=== PATIENT | male | born 1960 | race Caucasian/White ===

== ENCOUNTER → 2019-12-19 10:49 | Outpatient (BNVA) | payer SELFPAY | PROVIDERS: PCP Nurse Practitioner Family; Visit Provider Nurse Practitioner Family | DX: R06.02 Shortness of breath (principal); R06.89 Other abnormalities of breathing; J44.9 Chronic obstructive pulmonary disease, unspecified | CPT/HCPCS: 71046 ==

== ENCOUNTER → 2020-01-15 10:12 | Outpatient (BNVA) | payer SELFPAY | PROVIDERS: PCP Nurse Practitioner Family; Visit Provider Nurse Practitioner Family | DX: E66.9 Obesity, unspecified (principal); R25.2 Cramp and spasm | CPT/HCPCS: 80053; 80061; 83036; 84439; 84443 ==

== ENCOUNTER → 2020-01-30 13:42 | Outpatient (BNVA) | payer SELFPAY | PROVIDERS: PCP Nurse Practitioner Family; Visit Provider Nurse Practitioner Family | DX: E11.9 Type 2 diabetes mellitus without complications (principal); Z91.09 Other allergy status, other than to drugs and biological substances | CPT/HCPCS: 83036 ==

== ENCOUNTER 2020-02-09 13:11 | Outpatient (CLI) | payer SELFPAY ==
--- NOTE | 2020-02-09 13:30 | CT_ITS ---
WS: [id number] CT CHEST WITHOUT INTRAVENOUS CONTRAST HISTORY: abnormal x ray TECHNIQUE: Contiguous 5 mm axial imaging performed on the thorax. Coronal and sagittal reformats are submitted. All CT scans at [facility] use at least one of these dose optimization techniq ues: automated exposure control; mA and/or kV adjustment per patient size (includes targeted exams wh ere dose is matched to clinical indication); or iterative reconstruction. CONTRAST: Omnipaque 300; 95 mL IV. DLP: 132 726 mGy-cm. COMPARISON: Chest radiograph 12/19/2019 Lungs and central airway: Solid lobulated mass centered in the posterior superior RIGHT upper lobe me asures 3.1 cm transversely by 3.2 cm AP. Mass extends over length of 3.2 cm. Margins are very slightl y lobulated. There is mild tethering and tagging to the pleural surface. No additional mass or nodule is identified. Pleura: Normal. No pleural effusion. Heart and pericardium: Normal size heart. No pericardial effusion. Moderate atherosclerosis in the na tive coronary arteries. Mediastinum and chin: Small, subcentimeter mediastinal and hilar lymph nodes. Lymph node burden at th e RIGHT hilum is difficult to evaluate without IV contrast. No subcarinal lymph nodes. Vessels: Very mild atherosclerosis thoracic aorta. Pulmonary artery size is enlarged measuring 3.7 cm transversely. Chest wall and lower neck: No soft tissue masses. Upper abdomen: As visualized no abnormality. Hepatic steatosis. The entire liver was not included. Osseous structures: No osteoblastic or osteolytic bone disease. CT/CT chest wo con [id number] IMPRESSION: 1. Solid, lobulated RIGHT upper lobe mass with a maximum diameter of 3.2 cm. S uspicious for pulmonary neoplasm until proven otherwise. This mass would most l ikely be accessible for CT-guided liver biopsy or navigational bronchoscopy. 2. No adenopathy identified. Lack of IV contrast does limit evaluation for sma ller abnormal lymph nodes. 3. Mild atherosclerosis aorta and moderate chilkat coronary artery atherosclero sis. 4. Pulmonary hypertension.
== END 2020-02-09 13:12 | disposition home or self-care (01) ==
LOC: RADWPI 13:13
PROVIDERS: PCP Nurse Practitioner Family; Visit Provider Nurse Practitioner Family
DX: R93.89 Abnormal findings on diagnostic imaging of other specified body structures (principal); R91.8 Other nonspecific abnormal finding of lung field; I70.0 Atherosclerosis of aorta; I25.10 Atherosclerotic heart disease of native coronary artery without angina pectoris; I27.20 Pulmonary hypertension, unspecified
CPT/HCPCS: 71250

== ENCOUNTER → 2020-03-18 09:08 | Outpatient (BNVA) | payer OTHER, SELFPAY | PROVIDERS: PCP Nurse Practitioner Family; Visit Provider Nurse Practitioner Family | DX: Z20.828 Contact with and (suspected) exposure to other viral communicable diseases (principal) | CPT/HCPCS: 87635 ==

== ENCOUNTER 2020-03-20 13:01 | Outpatient (CLI) | payer SELFPAY ==
--- NOTE | 2020-03-20 09:55 | PFTS_ITS ---
Date of Study:03/20/20 Date of Dictation: 03/21/2020 MECHANICS: Forced vital capacity (FVC) is reduced Forced expiratory volume in one second (FEV1) is severely reduced FEV1/FVC is reduced. No significant response to bronchodilators FLOW VOLUME LOOP: Excessive scooping of expiratory limb suggestive of obstructive ventilatory defect . LUNG VOLUMES: Total lung capacity (TLC) is normal. Residual volume (RV) is increased suggestive of mild air trapping DIFFUSING CAPACITY FOR CARBON MONOXIDE: Mildly reduced . INTERPRETATION: The pulmonary function tests are consistent with obstructive ventilatory disease and mildly reduced gas transfer. Please correlate clinically. MTDD
--- NOTE | 2020-03-20 13:26 | PFTS_ITS ---
Date of Study:03/20/20 Date of Dictation: MECHANICS: Forced vital capacity (FVC) is . Forced expiratory volume in one second (FEV1) is . FEV1/FVC is . FLOW VOLUME LOOP: . LUNG VOLUMES: Total lung capacity (TLC) is . Residual volume (RV) is . DIFFUSING CAPACITY FOR CARBON MONOXIDE: . INTERPRETATION: The pulmonary function tests are . mechanics and lung volumes. Gas exchange (DLCO) is . MTDD
== END 2020-03-20 13:02 | disposition home or self-care (01) ==
LOC: RT 13:04
PROVIDERS: Visit Provider Thoracic Surgery (Cardiothoracic Vascular Surgery)
DX: R91.8 Other nonspecific abnormal finding of lung field (principal)
CPT/HCPCS: 94060; 94726; 94729; J7611

== ENCOUNTER 2020-04-15 08:15 | Outpatient (CLI) | payer SELFPAY ==
[2020-04-15 08:42] VITALS: BMI 44.1
--- NOTE | 2020-04-15 08:42 | ECG_ITS ---
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 Interpretive Statements NAME OF STUDY: LEXISCAN SESTAMIBI STRESS TEST INDICATION: Chest Pain PROCEDURE: At the baseline, the blood pressure was 132/66 mmHg with a heart rate of 79 bpm. The electrocardiogram showed normal sinus rhythm, normal axis with normal ST and T's. The Lexiscan was infused over a period of 20 seconds. A total of 0.4 milligrams of Lexiscan was infused. The stress phase was continued for a total of 5 minutes. Heart rate at the end of the stress phase was 88 bpm with a blood pressure 124/74 mmHg. The EKG at the peak infusion revealed sinus rhythm with no significant ST-T wave changes. Sestamibi was injected 20 seconds after the Lexiscan infusion. Blood pressure at the end of the recovery phase was 131/84 mmHg with a heart rate of 88 beats per minute. CONCLUSION: 1. Normal EKG response to LexiScan infusion. 2. No LexiScan induced chest pain or cardiac arrhythmia. 3. Normal blood pressure and heart rate response. 4. Sestamibi/sestamibi perfusion scan pending; see separate report. Electronically Signed On 04-16-2020 17:11:00 INFRASTRUCTURE DEVELOPER by Raegan Zhao M.D. [id number]
--- NOTE | 2020-04-15 08:42 | NMCV_ITS ---
NM lucita perf SPECT r/s* [id number] Hernandez, Heri Age: 60 Gender: M : 1960 Exam Date: 04/15/2020 08:42 Ordering Phys: Raegan Zhao MD ([email or web address]) Technologist: JEANIE Villa Exam Location: [facility] Indications: SHORTNESS OF BREATH STRESS TEST [facility] IMAGE PROTOCOL Rest/Stress 1 Lexiscan Day Radiopharmaceutical Dose (mCi) Administration Site Administered by Rest: Tc-99m 10.5 IV JEANIE Villa Sestamibi Stress:Tc-99m 32.4 IV JEANIE Villa Sestamibi Rest: 15-Apr-2020 60 Discovery 630 Stress: 15-Apr-2020 30 Discovery 630 0.4mg Lexiscan. Images obtained in supine and prone position. SPECT RESULTS Technical Quality: Good Raw Data Analysis: Normal Image Corrections: No attenuation or motion correction applied Summed Stress Score: 8 Summed Rest Score: 1 Summed Difference Score: 7 PERFUSION FINDINGS Small sized reversible perfusion abnormality of mid to apical inferior, apical septal, apical lateral and apical ugarte on stress images. FUNCTIONAL RESULTS (calculated via Gated SPECT) Stress Image LV EF (%): 58 Stress EDV (mL):178 TID: 0.92 Stress ESV (mL):75 FUNCTIONAL FINDINGS: The left ventricle is normal in size. Transient Ischemia Dilatation of 0.92. There is normal left ventricular systolic function. The left ventricular ejection fraction is normal with a value of 58%. There is possible mild hypokinesis of mid to apical inferior ugarte. IMPRESSIONS 1. Small sized reversible perfusion abnormality of mid to apical inferior, apical septal, apical lateral and apical ugarte. This may be suggestive of small area of ischemia in right coronary artery territory. 2. The left ventricular ejection fraction is normal with a value of 58%. 3. There is possible mild hypokinesis of mid to apical inferior ugarte. 4. No prior similar studies to compare. Raegan Zhao MD (Electronically Signed) Final Date: 16 April 2020 21:04 S
[2020-04-15 10:21] VITALS: BP 120/78; PULSE 91
[2020-04-15] MEDS: regadenoson 0.4 Mg/5 ml Syringe IVP (10:21)
== END 2020-04-15 08:16 | disposition home or self-care (01) ==
LOC: CDL 08:18
PROVIDERS: Visit Provider Internal Medicine Cardiovascular Disease
DX: Z01.818 Encounter for other preprocedural examination (principal); R06.02 Shortness of breath; R07.9 Chest pain, unspecified
CPT/HCPCS: 78452; 93017; A9500; J2785

== ENCOUNTER → 2020-05-15 08:01 | Day surgery (SDC) | payer SELFPAY | PROVIDERS: Visit Provider Thoracic Surgery (Cardiothoracic Vascular Surgery) | DX: Z01.818 Encounter for other preprocedural examination (principal) | CPT/HCPCS: 01996; 87635 ==

== ENCOUNTER 2020-05-20 13:08 | Inpatient (IN) | payer SELFPAY ==
[2020-05-15 08:45] VITALS: BMI 43.2
[2020-05-15 09:26] LABS: Basophils # 0.1 10^3/uL (0.0-0.1); Basophils % 0.6 %; Eosinophils # 0.3 10^3/uL (0.0-0.8); Eosinophils % 2.5 %; Hematocrit 50.3 % (42.0-52.0); Hemoglobin 16.9 g/dL (11.7-16.6); Lymphocytes # 2.2 10^3/uL (0.8-4.8); Lymphocytes % 20.2 %; Mean Corpuscular HGB Conc 33.6 g/dL (30.0-36.0); Mean Corpuscular Hemoglobin 29.9 pg (28.0-34.0); Mean Platelet Volume 9.4 fL (7.4-10.4); Monocytes # 0.6 10^3/uL (0.2-0.9); Monocytes % 5.9 %; Neutrophils # 7.57 10^3/uL (1.8-7.7); Neutrophils % 70.1 %; Nucleated Red Blood Cells % 0 %; Platelet Count 236 10^3/cmm (130-400); Red Blood Count 5.65 10^6/uL (4.1-5.3); Red Cell Distribution Width 13.2 % (12.1-15.1); White Blood Count 10.8 10^3/uL (4.0-10.0)
[2020-05-15 09:28] LABS: Add Urine Microscopic? NO
[2020-05-15 09:41] LABS: Bilirubin Urine Neg (Negative); Blood Urine Neg (Negative); Glucose Urine UA Norm (Normal); Ketones Urine Negative (Negative); Leukocyte Esterase Urine Negative (Negative); Nitrate Urine Negative (Negative); Protein Urine Neg (Negative); Specific Gravity, Urine 1.025 (1.005-1.030); Urine Appearance Clear (CLEAR); Urine Color Yellow (Yellow); Urobilinogen Urine Norm (Negative); pH Urine 5 (5-7)
--- NOTE | 2020-05-15 10:01 | ANES.PREANE2 ---
Pre-Anesthetic Assessment Pre-Anesthetic Assessment: Height/Weight: Height 1.8 m Weight 140.614 kg Proposed Procedure: Operation Date: 05/20/20 07:00 Proposed Procedures p Lobectomy 11795 R91.8(Right) - Joselito Pruitt MD s Thoracotomy 20772 R91.8(Right) - Joselito Pruitt MD Was Beta Alex taken within 24 hours: Yes Social: Social History: Tobacco and No alcohol Exam: Pre-Anes Outpt Exam: alert, oriented x 3 and regular rate & rhythm Additional Exam Findings (including area of procedure): Decreased BS on right, rhonchi Airway: Submandibular: WNL Cervical ROM: Other (limited nech ext/flexion) MP: 2 Dentition: Full Pulmonary: Pulmonary: COPD and Sleep apnea CV/HEM: CV/HEM: HTN Comments: EKG--multifocal PAC : : None reported Hepatic: Hepatic: None reported GI: GI: None reported Metabolic: Metabolic: DM and Morbid obesity Musc/skel: Musc/skel: Lower Back Pain Comments: Chronic back pain and surgeries Neuropsych: Neuropsych: None reported Anesthetic Plan: ASA status: 4 Anesthesia: General Other: DLETT with thoracic epidural Risk of > 500 ml blood loss (7ml/kg in children): Yes, adequate IV access and fluids planned PFSH Anesthesia PFSH: Medical History (Updated 04/07/20 @ 18:03 by Raegan Zhao MD) COPD (chronic obstructive pulmonary disease) New onset type 2 diabetes mellitus WAN (obstructive sleep apnea) Social History Smoking and tobacco status: current every day smoker cigarettes Packs smoked per day: 1.5 [ Other cigarette details: 1.5ppd x 45 years ] Quit status (tobacco): not considering quitting Second hand smoke exposure: No Smoking risk assessment/counseling performed?: Yes Alcohol intake: current Alcohol intake frequency: holidays/special occasions only Lives independently: Yes Household members: spouse Housing: House Marital status: service: No Current occupational status: employed History of recent travel: Yes Out of state: Yes Current gender identity: Male Data Anesthesia CBC & Chem 7: 05/15/20 09:15 05/15/20 09:15 Other Labs: Laboratory Results - last 48 hr 05/15/20 05/15/20 08:40 09:15 WBC 10.8 H RBC 5.65 H Hgb 16.9 H Hct 50.3 MCV 89.0 MCH 29.9 MCHC 33.6 RDW 13.2 Plt Count 236 MPV 9.4 Neut % (Auto) 70.1 Lymph % (Auto) 20.2 Mckenzie % (Auto) 5.9 Eos % (Auto) 2.5 Baso % (Auto) 0.6 Neut # (Auto) 7.57 Lymph # (Auto) 2.2 Mckenzie # (Auto) 0.6 Eos # (Auto) 0.3 Baso # (Auto) 0.1 Nucleated RBC % (auto) 0 Nucleated RBCs # 0.0 Urine Color Yellow Urine Appearance Clear Urine pH 5 Ur Specific [place] 1.025 Urine Protein Neg Urine Glucose (UA) Norm Urine Ketones Negative Urine Blood Neg Urine Nitrate Negative Urine Bilirubin Neg Urine Urobilinogen Norm Ur Leukocyte Esterase Negative Cardiac Studies: No Data to Display
[2020-05-15 10:28] LABS: INR 0.96 (0.8-1.2)
[2020-05-15 10:43] LABS: Alanine Aminotransferase 15 U/L (0-41); Albumin Level 3.4 g/dL (3.5-5.2); Alkaline Phosphatase 87 IU/L (40-130); Anion Gap 14.4 (5-19); Aspartate Amino Transferase 12 U/L (0-40); Blood Urea Nitrogen 9 mg/dL (6-20); Calcium 8.5 mg/dL (8.5-10.5); Carbon Dioxide 30 mmol/L (22-29); Chloride 100 mmol/L (98-107); Globulin 3.4 g/dL (1.3-4.6); Glomerular Filtration Rate 170.8 mL/min (90-130); Glucose 154 mg/dL (65-115); Osmolality Calculated 292 mOsm/kg (285-295); Potassium 4.4 mmol/L (3.5-5.1); Sodium 140 mmol/L (136-145); Total Bilirubin 0.3 mg/dL (0.15-1.2); Total Protein 6.8 g/dL (6.6-8.7)
[2020-05-20] VITALS (50 sets, daily range): BP systolic 112–156; BP diastolic 74–99; PULSE 84–107; RESP 15–29; TEMP 36.2–36.8; O2SAT 89–96
--- NOTE | 2020-05-20 05:40 | XR_ITS ---
WS: [id number] XR chest 1V portable [id number] REASON FOR EXAM: Preop for planned right upper lobectomy FINDINGS: Dense lobulated mass overlying the right mid lung field which appears larger and more dense than on p revious chest x-ray of 12/19/2019. XR/XR chest 1V portable [id number] IMPRESSION: Enlarging right lung mass.
[2020-05-20 06:12] LABS: Glucose Point of Care 187 mg/dL (70-110)
--- NOTE | 2020-05-20 06:14 | P.ANESUD_ITS ---
Pre-Anesthetic Update Pre-Anesthetic Assessment: Date of Surgery/Procedure: 05/20/20 Preop Mary gnosis: Right upper lobe mass Proposed Procedure: Operation Date: 05/20/20 07:00 Proposed Procedures p Lobectomy 53173 R91.8(Right) - Joselito Pruitt MD s Thoracotomy 94207 R91.8(Right) - Joselito Pruitt MD Any changes to Pre-Anesthetic Assessment?: No Last Intake: Intake Last Liquid Date 05/20/20 Last Liquid Time 00:00 Last Solid Date 05/20/20 Last Solid Time 00:00 Labs Last 48hrs: Laboratory Results - last 48 hr 05/18/20 05/20/20 13:28 06:10 POC Glucose 187 Blood Type O Positive Rho(D) Type Positive Antibody Screen Negative Crossmatch See Detail Vitals: Temperature 97.1 F L 05/20/20 05:43 Temperature Source Temporal Artery S can 05/20/20 05:43 Pulse Rate 101 H 05/20/20 05:43 Pulse Rhythm 05/20/20 05:43 Pulse Strength 3+ Normal 05/20/20 05:43 Respiratory Rate 20 H 05/20/20 05:43 Blood Pressure 156/99 05/20/20 05:43 Blood Pressure Josefa n 118 05/20/20 05:43 Pulse Oximetry 91 05/20/20 05:43 Oxygen Delivery Me thod 05/20/20 05:43 Exam: Pre-Anes Outpt Exam: alert, oriented x 3, clear to auscultation bilaterally and regular rate & rhythm Cardiac Studies: No Data to Display
[2020-05-20] MEDS: sodium chloride 0.9% 1,000 ML 30 ML IV (06:16)
--- NOTE | 2020-05-20 06:17 | P.HP_ITS ---
Providers/Chief Complaint Chief Complaint: right lobectomy History of Present Illness Heri Hernandez is a 60 year old male whom I saw originally in consultation back on March 07 of this year with presentation of a 3.2 cm lobulated right upper lobe mass that was noted on a chest x-ray as part of an evaluation for seasonal allergies and environmental exposure. This was followed up with a CT scan of the chest which revealed a 3.1 x 3.2 cm lesion in the posterior superior region of the right upper lobe. Modest enlargement of the pulmonary artery to 3.7 cm was also noted. 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 And smoking at age 15 and has smoked on average, 1.5 packs of cigarettes daily. His weight is 320 pounds plus. PET scan has revealed increased activity in this right upper lobe lesion but no abnormal activity elsewhere. He does have a prior history for COPD and he does have a CPAP machine at home which he admits that he rarely uses. Pulmonary function studies of March 20 revealed an FEV1 of 1.8 which is 47% of predicted without improvement postbronchodilator. His FVC is 3.16 which is 64% of predicted with minimal improvement postbronchodilator. Of concern is his FEF 25/75 which is 0.86, 26% of predicted. Does give a history occasionally of midsternal chest discomfort. Therefore, I asked my colleague, Dr. Zhao from our cardiology service for an evaluation. He was evaluated by her on March 28. Chest amoeba study was ordered and performed on April 15. The study was unremarkable. As part of continued preoperative evaluation ask my colleague, Dr. Scott from our pulmonary service for evaluation preoperatively. He saw Mr. Hernandez on April 03. He does have substantial preoperative comorbidities and risk profile but was cleared for surgery with high risk and a potential 42% pulmonary complication rate. Dr. Scott explained this carefully to Mr. Hernandez and his . With this understanding, they did wish to proceed with surgery. I will be seeking expertise and advice of our pulmonary colleagues postoperatively given the high risk nature of his comorbidities in relation to this attempt to hopefully curative resect this concerning lesion with a high probability for malignancy. Risk profile, which was again Explained to him today and his , include morbid obesity, COPD, continued tobacco use, room air O2 saturation low 90%, recorded during 1 clinic visit at 84%. Review of Systems Const: Denies: fever(s), chills, change in appetite, change in weight, fatigue or night sweats Eyes: Denies: change in vision or blurry vision ENMT: Denies: odynophagia or hoarseness Card: Reports: chest pain (This is been evaluated by Dr. Zhao from cardiology service and has include) and dyspnea on exertion; Denies: palpitations, irregular heart rhythm or pre-syncope Resp: Reports: dyspnea; Denies: productive cough, pain on inspiration or hemoptysis GI: Denies: abdominal pain, nausea, vomiting, dysphagia, heartburn or change in bowel habits : Denies: difficulty urinating, dysuria, urinary frequency, urinary urgency or urinary hesitancy Musc: Denies: extremity pain or extremity swelling Skin/Breast: Denies: rash Neuro: Denies: headache(s), numbness in extremities, weakness in extremities or sensory changes Psych: Denies: anxiety, depression or change in appetite Endo: Denies: polyuria, polydipsia or cold intolerance Anthony/Lymph: Denies: easy bruising, easy bleeding, petechiae or enlarged lymph nodes Medications/Allergies Home Medications Medication Instructions Recorded Confirmed Last Taken Type cetirizine 10 mg tablet 10 mg PO DAILY #30 tab 12/19/19 05/20/20 05/19/20 Rx ketotifen fumarate 0.025 % (0.035 1 drop OPHTHALMIC (EYE) Q12H #5 ml 01/15/20 05/15/20 Unknown Rx %) eye drops blood-glucose meter #1 each 01/30/20 04/03/20 Unknown Rx albuterol sulfate 90 mcg/actuation 1 inh INHALATION QID PRN 03/07/20 05/20/20 05/18/20 History aerosol inhaler nicotine (polacrilex) 4 mg gum 4 mg BUCCAL Q2H #50 each 04/03/20 04/03/20 Rx nicotine 21 mg/24 hr daily 1 patch TRANSDERMA DAILY #28 each 04/03/20 04/03/20 Unknown Rx transdermal patch metoprolol tartrate 25 mg tablet 25 mg PO BID #60 tab 04/18/20 05/20/20 05/19/20 20:00 Rx rosuvastatin 10 mg tablet 10 mg PO DAILY #30 tab 04/18/20 05/20/20 05/19/20 Rx metformin 500 mg tablet 500 mg PO BID #60 tab 05/13/20 05/20/20 05/19/20 20:00 Rx Allergies Allergy/AdvReac Type Severity Reaction Status Date / Time carisoprodol [From Soma] Allergy ALGY-Hives Verified 05/15/20 08:39 fluticasone Allergy ALGY-Hives Verified 05/15/20 08:39 [From Advair Diskus] salmeterol Allergy ALGY-Hives Verified 05/15/20 08:39 [From Advair Diskus] PFSH Acute PFSH: Medical History COPD (chronic obstructive pulmonary disease) New onset type 2 diabetes mellitus WAN (obstructive sleep apnea) Social History Smoking and tobacco status: current every day smoker cigarettes Packs smoked per day: 1.5 [ Other cigarette details: 1.5ppd x 45 years ] Quit status (tobacco): not considering quitting Second hand smoke exposure: No Smoking risk assessment/counseling performed?: Yes Alcohol intake: current Alcohol intake frequency: holidays/special occasions only Lives independently: Yes Household members: spouse Housing: House Marital status: service: No Current occupational status: employed History of recent travel: Yes Out of state: Yes Current gender identity: Male Vitals/I&O/Wt Last Vital Signs Temp 97.1 F L 05/20/20 05:43 Pulse 101 H 05/20/20 05:43 Resp 20 H 05/20/20 05:43 BP 156/99 05/20/20 05:43 Pulse Ox 91 05/20/20 05:43 Physical Exam Const: COMMON NORMALS: patient oriented x3 and alert ORIENTATION/CONSCIOUSNESS: Yes oriented to person, Yes oriented to place and Yes oriented to time HENMT: COMMON NORMALS: normocephalic HEAD & SCALP: normocephalic Neck/C-Spine: COMMON NORMALS: full ROM, supple, no JVD and No carotid bruits GENERAL: Yes trachea midline CERVICAL SPINE: Yes cervical ROM normal Chest: COMMONS NORMALS: normal inspection of the chest and normal palpation of entire chest wall Resp: COMMON NORMALS: normal respiratory effort, No use of accessory muscles, clear to auscultation bilaterally and percussion normal EFFORT & INSPECTION: Yes able to speak in complete sentences, Yes symmetric chest movement, No tachypneic, No respiratory distress, No Actively coughing, No tracheal deviation and Yes prolonged expiratory phase AUSCULTATION: clear to auscultation bilaterally PERCUSSION: percussion normal Cardio: COMMON NORMALS: no JVD, regular rate, regular rhythm, S1 normal heart sound present, S2 normal heart sound present, No gallops present (Cardio), No murmurs present (Cardio), No rub (Cardio) and Peripheral pulses 2+ throughout JUGULAR VENOUS DISTENTION: no JVD RATE: regular rate RHYTHM: regular rhythm HEART SOUNDS: S1 normal heart sound present and S2 normal heart sound present PERIPHERAL PULSES: Peripheral pulses 2+ throughout Extremity: COMMON NORMALS: capillary refill normal; negative for no pedal edema (1+ edema at the ankles) GENERAL: No cyanosis OTHER: 1+ edema at the ankles. No clubbing or cyanosis. Neuro: COMMON NORMALS: patient oriented x3, no focal motor deficits and no sensory deficits noted SENSORIUM/ORIENTATION: Yes alert, Yes oriented to person, Yes oriented to place and Yes oriented to time GAIT: Yes Normal gait present Data : 05/15/20 09:15 05/15/20 09:15 A&P Assessment and plan (1) Mass of upper lobe of right lung: Morbidly obese 60-year-old gentleman with isolated 3.2 cm right upper lobe lung mass without evidence for metastatic disease. Lesion has increased activity on PET scan and is concerning. Substantial preoperative risk include morbid obesity, COPD, continued tobacco use, and room air saturation below 90%. He has been carefully evaluated preoperatively by my colleagues through the cardiology service and pulmonary medicine. Mr. Hernandez and his are keenly aware of the increased risk for surgical complications. They do wish to proceed for surgery. I will be seeking the expertise of our pulmonary colleagues in the postoperative period. I would expect he will have a protracted course and may have respiratory difficulties and concerns as previously documented by Dr. Scott. Details and risks of the procedure were carefully and frankly discussed. Risks reviewed include the possibility of , stroke, heart attack, major bleeding, infection, pneumonia, prolonged need for dilatory support, prolonged ICU stay, DVT or pulmonary embolism, inability to adequately resect the lesion, organ failure, failure to benefit, prolonged hospital stay, pain after the procedure, need for further procedures, inability to complete the procedure, and possible need for long-term followup. All questions were answered. Appropriate consents have been provided for review and signature. Status: Acute Attestations Medical Necessity Statement*: PET positive right upper lobe lung mass in this middle-aged gentleman with a long history tobacco use and several perioperative complicating factors. Time Spent in Patient Care: Greater than 35 minutes Coding Level of Care Code Established Pt Acute Tenant Relations Coordinator for Chg Fwd Patient Type Established History Comprehensive Exam Comprehensive Medical Decision Making High Complexity Diagnoses Mass of upper lobe of right lung R91.8 Time Spent (min) 45
[2020-05-20] MEDS: midazolam 1 mg/mL INJ 2 mL 2 MG IVP (06:30)
[2020-05-20] MEDS: fentaNYL 50 mcg/mL INJ 2mL 100 MCG IVP (06:49)
--- NOTE | 2020-05-20 08:04 | SUR.OPER ---
Family Notified Of Patient's Status Via Phone.
[2020-05-20] MEDS: ceFAZolin 1,000 mg SDV 2000 MG IRRIGATION (08:09)
--- NOTE | 2020-05-20 08:25 | ANES.PROC ---
Anesthesia Procedures Procedure/Date: 05/20/20 Epidural: Time Out Performed: Yes Consents Signed: Procedure Consent and NPO Consent Consent: requested by attending/covering physician, from patient, risks and benefits reviewed and patient agrees to proceed Thoracic Level: other (T6-7) Epidural position: sitting Epidural procedure: sterile prep of area, 1% lidocaine to numb the area, 18 g needle, negative for paresthesia passed, neg for paresthesia, test dose given, 1.5% xylocaine 1:200k epi (3), placed PCEA, no systemic response, sterile dressing applied and L.U.D. no apparent complications
--- NOTE | 2020-05-20 09:02 | SUR.OPER ---
Family Notified Of Patient's Status Via Phone.
--- NOTE | 2020-05-20 10:48 | SUR.OPER ---
Family Notified Of Patient's Status Via Phone.
[2020-05-20] MEDS: ceFAZolin 1,000 mg SDV 2000 MG IVP (11:44)
[2020-05-20] MEDS: insulin regular-human 100 units/1 mL 4 UNIT IVP (12:38)
[2020-05-20 13:08] LABS: ABG PCO2 54.9 mmHg (35-45); ABG PH Result 7.32 (7.35-7.45); Arterial Blood Gas Hematocrit 49.3 % (42-52); Base Excess ABG 0.7 mmol/L (-2.0-2.0); Blood Gas Operator Identificat AMH; Blood Gas Sample Type Arterial; Carboxyhemoglobin 3.3 %THgb (0.4-20.1); HCO3 ABG 28.2 mmol/L (22-26); HGB O2 Sat 95.6 % (95-100); Oxygen Device VENT; Oxygen Saturation ABG 99.9; Potassium Level - ABG 5.6 mmol/L (3.5-5.0); Total Hemoglobin 16.1 g/dL (14-18)
[2020-05-20 13:11] LABS: ABG PH Result 7.25 (7.35-7.45); Arterial Blood Gas Hematocrit 51.9 % (42-52); Base Excess ABG 1.3 mmol/L (-2.0-2.0); Blood Gas Operator Identificat MBB; Blood Gas Sample Type Arterial; Carboxyhemoglobin 3.6 %THgb (0.4-20.1); HCO3 ABG 31.3 mmol/L (22-26); HGB O2 Sat 91.9 % (95-100); Ionized Calcium Level - ABG 1.1 mmol/L (1.1-1.4); Methemoglobin 0.2 % (0.4-1.5); Oxygen Device VENT; Oxygen Saturation ABG 95.6; Total Hemoglobin 16.9 g/dL (14-18)
[2020-05-20 13:15] LABS: ABG PCO2 71.2 mmHg (35-45)
--- NOTE | 2020-05-20 14:07 | XR_ITS ---
WS: [id number] XR chest 1V portable [id number] REASON FOR EXAM: post op cabg FINDINGS: Surgical arnie overlying the right hemithorax. Shift of the mediastinal structures to the right. Ri ght chest tube in place overlying the mid right hemithorax. There is air in the right upper pleural space. There is vague density in the left lower lung field overlying the cardiac silhouette. XR/XR chest 1V portable [id number] IMPRESSION: Findings compatible with partial right pneumonectomy. Vague density in the left lower lung . Possibly this is related to some atelect asis in the left lower lung.
[2020-05-20] MEDS: ketorolac 30 mg/mL INJ IVP (14:17)
[2020-05-20] MEDS: morphine 4 mg/mL SDV 1 mL 2 MG IVP ×2 (14:57→20:53)
[2020-05-20] MEDS: ondansetron 2 mg/ML SDV 2 mL 4 MG IVP (15:06)
[2020-05-20] MEDS: lactated ringers 1,000 ML 125 ML IV (15:17)
[2020-05-20] MEDS: ceFAZolin 1,000 MG in sodium chloride 0.9% (plus) 50 ML 100 MG IV ×2 (15:30→23:15)
--- NOTE | 2020-05-20 15:50 | ANE.PACU2 ---
Inpatient post-anesthesia follow up: Airway intact: Yes Vital signs: Temperature 97.1 F Pulse Rate 107 Respiratory Rate 28 Blood Pressure 156/99 Pulse Oximetry 89 Oxygen Delivery Me thod BiPAP Oxygen Flow Rate Fraction of Inspir ed Oxygen 65 Hydration adequate: Yes Nausea and vomiting: No Pain level: 6 Pain level: lower back Mental status: Baseline
--- NOTE | 2020-05-20 16:34 | P.CONIM_ITS ---
Providers/Reason For Consult Consulting Physican/Specialty*: Pulmonary and critical care medicine Reason for Consult*: Postoperative management following right upper lobectomy for suspected lung malignancy. Attending Physician: Joselito Pruitt MD History of Present Illness History of Present Illness Heri Hernandez is a 60 year old male who underwent right upper lobectomy today for right upper lobe lung mass. The patient is an active smoker and has an extensive history of smoking. He also has chronic hypoxic and hypercapnic respiratory failure. He also carries a diagnosis of obstructive sleep apnea possibly with a component of obesity hypoventilation syndrome. The patient is a high risk candidate for perioperative complications. I had seen and examined the patient in the ICU post surgery. It appears, the patient had significant hip pain. His chest pain is controlled with epidural anesthesia. The surgical procedure was uncomplicated. The right-sided chest tube did not reveal any evidence of air leak. Pulmonary function test: The patient has severe airflow obstruction on his pulmonary function test from March 2020. His FEV1 FVC ratio is 56% with FEV1 of 1.79 L which is 47% of predicted and forced vital capacity of 3.22 L which is 65% of predicted. His DLCO was 77% with mildly elevated residual volume at 122%. The patient was also evaluated by the cardiac team preoperatively. His stress test from April 15 revealed small size reversible perfusion abnormality of mid to apical inferior, apical septal, apical lateral and apical ugarte. The ejection fraction was 58%. There is also possible mild hypokinesis of the apical inferior wall. Review of Systems Narrative: Other than severe hip pain, the review of system was incomplete because of the patient's pain Meds/Allergies Home Medications and Allergies Home Medications Medication Instructions Recorded Confirmed Last Taken Type cetirizine 10 mg tablet 10 mg PO DAILY #30 tab 12/19/19 05/20/20 05/19/20 Rx ketotifen fumarate 0.025 % (0.035 1 drop OPHTHALMIC (EYE) Q12H #5 ml 01/15/20 05/15/20 Unknown Rx %) eye drops blood-glucose meter #1 each 01/30/20 04/03/20 Unknown Rx albuterol sulfate 90 mcg/actuation 1 inh INHALATION QID PRN 03/07/20 05/20/20 05/18/20 History aerosol inhaler nicotine (polacrilex) 4 mg gum 4 mg BUCCAL Q2H #50 each 04/03/20 04/03/20 05/19/20 Rx nicotine 21 mg/24 hr daily 1 patch TRANSDERMA DAILY #28 each 04/03/20 04/03/20 Unknown Rx transdermal patch metoprolol tartrate 25 mg tablet 25 mg PO BID #60 tab 04/18/20 05/20/20 05/19/20 20:00 Rx rosuvastatin 10 mg tablet 10 mg PO DAILY #30 tab 04/18/20 05/20/20 05/19/20 Rx metformin 500 mg tablet 500 mg PO BID #60 tab 05/13/20 05/20/20 05/19/20 20:00 Rx Allergies Allergy/AdvReac Type Severity Reaction Status Date / Time carisoprodol [From Soma] Allergy ALGY-Hives Verified 05/15/20 08:39 Current Medications Current Medications Generic Name Dose Route Start Last Admin Trade Name Freq PRN Reason Stop Dose Admin Ropivacaine 200 mg in 100 mls @ 6 mls/hr 05/20/20 08:00 05/20/20 15:22 Naropin Premix EPIDURAL Not Given .[id number] SYLVIA Cefazolin Sodium 1,000 mg/ 50 mls @ 100 mls/hr 05/20/20 15:00 05/20/20 15:30 Sodium Chloride IV 05/21/20 07:29 100 mls/hr Q8H SYLVIA Administration Protocol Lactated Ringer's 1,000 mls @ 125 mls/hr 05/20/20 14:06 05/20/20 15:17 Lactated Ringers IV 125 mls/hr .Q8H SYLVIA Administration Ondansetron HCl 4 mg 05/20/20 08:00 05/20/20 15:06 Ondansetron 2 Mg/Ml Sdv 2 Ml IVP 4 mg Q4H PRN Administration NAUSEA AND VOMITING PFSH Acute PFSH: Medical History COPD (chronic obstructive pulmonary disease) New onset type 2 diabetes mellitus WAN (obstructive sleep apnea) Social History Smoking and tobacco status: current every day smoker cigarettes Packs smoked per day: 1.5 [ Other cigarette details: 1.5ppd x 45 years ] Quit status (tobacco): not considering quitting Second hand smoke exposure: No Smoking risk assessment/counseling performed?: Yes Alcohol intake: current Alcohol intake frequency: holidays/special occasions only Lives independently: Yes Household members: spouse Housing: House Marital status: service: No Current occupational status: employed History of recent travel: Yes Out of state: Yes Current gender identity: Male Vitals/I&O/Wt Last Vital Signs Temp 97.1 F L 05/20/20 05:43 Pulse 107 H 05/20/20 14:26 Resp 28 H 05/20/20 14:57 BP 156/99 05/20/20 05:43 Pulse Ox 89 L 05/20/20 14:57 05/20/20 05/20/20 05/20/20 06:59 14:59 22:59 Intake Total 3560 / 3560 100 / 3660 Output Total 500 / 500 Balance 3060 / 3060 100 / 3160 Physical Exam Narrative: EXAM NARRATIVE: General: Patient is awake alert and oriented. In significant distress from hip pain. Neck: Unable to assess JVD Respiratory: Inspection: Right-sided chest tube in place Palpation: Trachea is mildly deviated to the left Percussion: Diminished percussion note on the right chest Auscultation: Reduced breath sound in the right hemithorax compared to the left, occasional crackles on the right, no wheezing or rhonchi Cardiovascular: Regular rate and rhythm, S1-S2 present, no murmur,no peripheral edema. Abdomen: Soft, nontender, distended from obesity, positive bowel sound Musculoskeletal: No obvious joint deformity, severe hip pain Skin: No rash Neuro: Mental status is normal, no gross cranial or motor dysfunction Urinary Catheter Management^: Bond: Cath Placed During This Visit: yes Urinary Catheter Date of Insertion: 05/20/20 Urinary Catheter Time of Insertion: 07:30 Data Other Data: Attestation for Other Data: I personally reviewed and interpreted the following: Other data: I have reviewed the patient laboratory, microbiologic and radiologic data. A&P Assessment and plan (1) COPD (chronic obstructive pulmonary disease): The patient has advanced COPD. On pulmonary function test he has severe airflow obstruction. Interestingly, his DLCO was normal. For now, I will restart the patient on Pulmicort and [id number] DuoNeb nebulization. Early mobilization would significantly help preventing atelectasis. Optimal pain control will also help with atelectasis. Going to give the patient a dose of 60 mg of Lasix. The postoperative chest x-ray revealed some evidence of interstitial opacity. Currently the patient is on BiPAP, he looks compensated. The patient does not use any CPAP at home. He will likely benefit from a CPAP or BiPAP at nighttime Status: Acute Qualifiers: COPD type: emphysema Emphysema type: centrilobular Qualified Code(s): J43.2 - Centrilobular emphysema (2) WAN (obstructive sleep apnea): Status: Acute (3) Chronic respiratory failure with hypoxia and hypercapnia: Patient is at high risk for perioperative complications. Status: Acute Coding Level of Care Code Acute Export Traffic Department Manager for [facility] Diagnoses COPD (chronic obstructive pulmonary disease) J43.2 COPD type: emphysema Emphysema type: centrilobular WAN (obstructive sleep apnea) G47.33 Chronic respiratory failure with hypoxia and hypercapnia J96.11; J96.12
[2020-05-20 17:16] LABS: Glucose Point of Care 212 mg/dL (70-110)
[2020-05-20] MEDS: FUROsemide 10 mg/mL SDV 4mL 60 MG IVP (17:16)
[2020-05-20] MEDS: metoprolol tartrate 25 mg Tablet PO (17:16)
--- NOTE | 2020-05-20 18:59 | PM.OP ---
Operative Report Date of procedure: May 20, 2020 Pre-op Diagnosis: Right upper lobe mass Post-op diagnosis: same Procedure Done: Right upper and middle lobectomies Specimens removed/disposition: Right upper and middle lobes Surgeon: Joselito Pruitt Anesthesia: General Complications: None Condition: stable Disposition: ICU Brief History: Mr. Hernandez is a 60-year-old morbidly obese gentleman with a long history of continued tobacco use and incidental finding of a 3.2 cm lobulated right upper lobe mass identified on chest x-ray during evaluation for seasonal allergies. This has been further evaluated with CT scan and subsequent PET scan which reveals increased activity in this substantial lesion. He has advanced COPD and has been carefully evaluated by Dr. Scott. He is a high risk candidate for surgery, though given the size of the lesion and increased activity on PET scan, there are great concerns for malignancy and it was felt that attempt at surgical removal should be entertained given that there was no evidence for advanced regional or metastatic disease. This was carefully discussed with Mr. Hernandez and his . The substantial increased risk for the surgery related to his comorbidities were very frankly reviewed and all questions were answered. As discussed with him and his , I would expect a protracted postop course with the increased potential for perioperative complications or poor outcome. He and his wish to proceed. Procedure: Thoracic epidural catheter was placed prior to entering the surgical suite. Mr. Hernandez underwent general endotracheal anesthesia with double-lumen endotracheal tube placed. Appropriate invasive lines were placed. He was placed in the left lateral decubitus position over axillary roll and protective padding. His entire right chest was sterilely prepped and draped. A right thoracotomy incision was made with cautery used to control bleeding. Given his substantial size and deep chest, the serratus anterior muscle was also partially divided to assist with exposure. Latissimus muscle was divided. The fifth intercostal space was entered. Moist laparotomy pads and the Finochietto retractor were placed on with assistance utilizing a tuffier retractor as well as a armaan retractor to help control the substantial soft tissue.. The chest was carefully opened. The impressive right upper lobe mass could be easily palpated. The pleura was opened circumferentially around the hilum. There were adhesions to portions of the right lower lobe. These were not disturbed. Hilar dissection was initiated anteriorly and superiorly. The superior pulmonary vein was controlled and stapled by sequentially dividing its branches. Dissection was then continued cranially isolating branches of the pulmonary artery to the right upper lobe. These were also taken down ligated and divided. Posteriorly, the bronchus to the right upper lobe was dissected free. Fissure between middle lobe and lower lobe was divided using automated stapler. Pulmonary artery branches to the middle lobe were taken down and ligated. Bronchus to the right middle lobe was stapled and transected. Next, right upper lobe bronchus was stapled and sharply divided with scalpel. Right upper and middle lobe specimen was removed. No substantial adenopathy at this bronchial staple line. Right upper lobe bronchial stump was oversewn with 4-0 Prolene suture. The entire chest was irrigated with large amounts of antibiotic solution. [] lobe was reinflated. No substantial air leaks were identified. 28 Yoruba drain was placed over the diaphragm and out to the apex. This was connected to Pleur-evac suction. Retractor and sponges were removed. Sponge and needle count was correct. Chest wall was reapproximated with interrupted #1 Vicryl suture. The fascia was closed with running 0 Vicryl suture. The subcutaneous layer was closed with 2-0 Vicryl suture. Skin was reapproximated in a subcuticular manner with 3-0 Monocryl suture. Sterile dressing was applied. Mr. Hernandez was returned to the supine position and awakened from anesthesia. He was extubated. He was then transferred to the ICU. His was counseled. I have conferred with my colleague Dr. Brown from pulmonary medicine, whom will be assisting with postoperative management given Mr. Hernandez's substantial pulmonary dysfunction. Chest x-ray is pending.
[2020-05-20] MEDS: oxyCODONE-APAP 5-325 mg Tablet 1 TAB PO (19:38)
[2020-05-20] MEDS: budesonide 0.5 mg/2 mL Neb 0.25 MG INHALATION (20:47)
[2020-05-20] MEDS: ipratropium-albuterol 3 mL Neb INHALATION (20:47)
[2020-05-20 21:04] LABS: Glucose Point of Care 189 mg/dL (70-110)
[2020-05-21] VITALS (300 sets, daily range): BP systolic 102–168; BP diastolic 66–125; PULSE 85–112; RESP 11–32; TEMP 36.5–37.3; O2SAT 80–95
[2020-05-21] MEDS: morphine 4 mg/mL SDV 1 mL 2 MG IVP ×6 (00:56→22:56)
[2020-05-21] MEDS: ipratropium-albuterol 3 mL Neb INHALATION ×4 (03:04→21:43)
[2020-05-21 04:06] LABS: Basophils # 0.1 10^3/uL (0.0-0.1); Basophils % 0.4 %; Eosinophils % 0.1 %; Hematocrit 49.9 % (42.0-52.0); Hemoglobin 15.5 g/dL (11.7-16.6); Lymphocytes # 2.4 10^3/uL (0.8-4.8); Lymphocytes % 12.9 %; Mean Corpuscular HGB Conc 31.1 g/dL (30.0-36.0); Mean Corpuscular Hemoglobin 29.1 pg (28.0-34.0); Mean Corpuscular Volume 93.6 fL (80-94); Mean Platelet Volume 9.8 fL (7.4-10.4); Monocytes # 1.2 10^3/uL (0.2-0.9); Monocytes % 6.3 %; Neutrophils # 14.78 10^3/uL (1.8-7.7); Neutrophils % 79.9 %; Nucleated Red Blood Cells % 0 %; Platelet Count 231 10^3/cmm (130-400); Red Blood Count 5.33 10^6/uL (4.1-5.3); Red Cell Distribution Width 13.6 % (12.1-15.1); White Blood Count 18.5 10^3/uL (4.0-10.0)
[2020-05-21 04:35] LABS: Blood Urea Nitrogen 23 mg/dL (6-20); Calcium 7.5 mg/dL (8.5-10.5); Carbon Dioxide 27 mmol/L (22-29); Chloride 100 mmol/L (98-107); Glomerular Filtration Rate 68.8 mL/min (90-130); Glucose 178 mg/dL (65-115); Osmolality Calculated 294 mOsm/kg (285-295); Sodium 138 mmol/L (136-145)
[2020-05-21 04:39] LABS: Anion Gap 16.2 (5-19); Potassium 5.2 mmol/L (3.5-5.1)
[2020-05-21] MEDS: guaiFENesin 100 mg/5 mL UDC 10 mL 200 MG PO (04:40)
--- NOTE | 2020-05-21 06:00 | XR_ITS ---
WS: [id number] XR chest 1V portable [id number] REASON FOR EXAM: POD #1 status post right upper/middle lobectomies FINDINGS: Compared to the previous examination of 05/20/2020, only a small amount of aerated lung is present and is slightly decreased volume compared to the previous examination. There appears to be infiltrative change developing in the lower portion of this aerated lung. Right chest tube remains in position. Mediastinal structures are shifted to the right. Previously suspicion density in the left lower lung on the previous examination, appears to be an inf iltrative process on the current study. XR/XR chest 1V portable [id number] IMPRESSION: Post partial pneumonectomy changes in the right hemithorax with some loss of ae rated lung compared to the prior day. Infiltrative process developing in the left lower lung and possibly within the remaining right lower lung.
--- NOTE | 2020-05-21 06:52 | PC.NURSE ---
Shift Summary: Patient had some c/o pain overnight that he says is from his hip with pain in right chest/back during coughing/turning. Morphine IVP, and PO Oxycodone given in efforts to decrease reported pain levels. Cough Suppressant given once during episode of Epidural still in place. Chest tube dressing remains mostly dry with minimal drainage noted. Sinus Tach towards the later part of shift with HR 90-105. Bipap was removed for about 30 mins during overnight shift. First was placed on 10L NC and desaturated to 80%. Hiflow then placed on patient at 15L NC, with SPO2 fluctuating to 85% at best. Patient was then placed back on Bipap at 65%, then returned to a 93% baseline. MD Edmond rounded this early AM. Reports patient should be moved up to chair as a priority. Art Line is to remain placed for close hemodynamic monitoring. NS@ 50mL/hr. 1050 u/o 560 chest tube drainage during shift/ (Total 720 to date). Patient up to chair with assistance of both day and nightshift RN's.
--- NOTE | 2020-05-21 07:30 | P.PN_ITS ---
Subjective Subjective: Interval history: Stop day #1 status post right upper lobectomy. Has remained on BiPAP all night. Desaturation when placed on nasal cannula. Tube output 560 cc since return from surgery. No air leak. Marked volume loss noted on right hemithorax. There is right pleural thickening versus early fluid collection laterally. Vitals/I&O/Wt Last Vital Signs Temp 98.2 F 05/21/20 04:05 Pulse 107 H 05/21/20 06:15 Resp 24 H 05/21/20 06:15 BP 163/125 05/21/20 06:15 Pulse Ox 92 05/21/20 06:15 05/20/20 05/21/20 05/21/20 22:59 06:59 14:59 Intake Total 1214.583 / 4774.583 1200 / 5974.583 Output Total 870 / 1370 1190 / 2560 Balance 344.583 / 3404.583 10 / 3414.583 Physical Exam Chest: OTHER: Surgical dressings are dry. Chest tube is in good position. Marked decreased breath sounds right side. Left side is clear. Cardio: COMMON NORMALS: regular rate, regular rhythm and S1 normal heart sound present RATE: regular rate RHYTHM: regular rhythm HEART SOUNDS: S1 no rmal heart sound present Urinary Catheter Management^: Bond: Cath Placed During This Visit: yes Reason for Continuing Indwelling Catheter: Accurate Measurement of Urinary Output in Critically Ill Patients Urinary Catheter Date of Insertion: 05/20/20 Urinary Catheter Time of Insertion: 07:30 Data : 05/21/20 03:20 05/21/20 03:20 A&P Assessment and plan (1) Status post lobectomy of lung: Plan: Up in chair. Aggressive pulmonary toilet. May require nasotracheal aspiration. As expected, this will be a difficult postop course with uncertain outcome at this time. Hemodynamically stable. I greatly appreciate Dr. Brown's expertise in efforts. CBC, BMP, chest x-ray in a.m. Status: Acute Attestations Medical Necessity Statement*: Postop day #1 status post right upper lobectomy. Pathology pending Time Spent in Patient Care: 16 - 35 minutes Coding Level of Care Code Acute Attractions Associate for [facility] F[facility] Diagnoses Status post lobectomy of lung Z90.2
[2020-05-21] MEDS: budesonide 0.5 mg/2 mL Neb 0.25 MG INHALATION ×2 (08:12→21:43)
--- NOTE | 2020-05-21 08:21 | PC.CHAP ---
Pastoral Care Encounter/Spiritual Assessment Type of Contact [] Declined automobile upholsterer apprentice visit [] Patient/Family/Request visit [] Outpatient visit [] Follow-up visit [] Physician referral [] Code/Alert [] Routine visit [] Staff referral [] Actively dying [] Patient sleeping [] Family support [] [] Out of room [] Palliative care [] [] Receiving care in room [] Pre-surgical visit [] Trauma [] Long length of stay [] ICU visit [] Other: Relational/Emotional Strength [] Patient feels connected with others/family/visitors/staff [] Distress [] Loneliness/isolation [] Abandonment Spirituality of Patient [] Person of Nadine [] Attends Buddhism of their Nadine [] Believes in Prayer [] Reads Bible or Baptist materials [] There are Spiritual issues to be addressed Bus Company Manager Interventions [x] Prayer [] Active listening [] Non-anxious presence [] Spiritual/emotional support [] Crisis/trauma care [] Spiritual counseling [] Bereavement support [] Provided bereavement packet [] Provided Bible/devotional materials [] Provided toy/stuffed animal, coloring book to patient or family member [] Provided Communion [] Anointing/[place] [] Salvation [x] Completed spiritual assessment [] Other: Impact on Illness or Injury [] Angry [] Fearful [] Anxious [] Often cries [] Exhaustion [] Unable to work [] Unable to attend buddhism [] Unable to walk/stand [] Unable to read [] Unable to drive [] Unable to eat/drink [] Unable to sleep [] Unable to be with family [] Patient intubated [] Other: Summary Time spent with patient
[2020-05-21] MEDS: ceFAZolin 1,000 MG in sodium chloride 0.9% (plus) 50 ML 100 MG IV (08:43)
[2020-05-21] MEDS: atorvastatin 40 mg Tablet PO (09:02)
[2020-05-21] MEDS: metoprolol tartrate 25 mg Tablet PO ×2 (09:02→17:21)
[2020-05-21] MEDS: pantoprazole DR 40 mg Tablet PO (09:02)
[2020-05-21] MEDS: cetirizine 10 mg Tablet PO (09:02)
[2020-05-21] MEDS: lactated ringers 1,000 ML 50 ML IV (09:09)
--- NOTE | 2020-05-21 09:30 | PC.RESP ---
SMOKING CESSATION AND PULMONARY REHAB INFORMATION SENT TO PATIENT.
--- NOTE | 2020-05-21 09:33 | ANE.PACU2 ---
Inpatient post-anesthesia follow up: Airway intact: Yes Vital signs: Temperature 97.7 F Pulse Rate 109 Respiratory Rate 20 Blood Pressure 142/82 Pulse Oximetry 93 Oxygen Delivery Me thod BiPAP Oxygen Flow Rate 65 Fraction of Inspir ed Oxygen 65 Hydration adequate: Yes Nausea and vomiting: No Pain level: 2 Pain level: Most of pain is related to CPAP mask and H/A. Mental status: Baseline Additional Comments: Incision is comfortable, patient up in chair. POD 1
[2020-05-21 11:21] LABS: Glucose Point of Care 228 mg/dL (70-110)
[2020-05-21 11:33] LABS: Glucose Point of Care 188 mg/dL (70-110)
--- NOTE | 2020-05-21 11:53 | PC.NURSE ---
Rounding upon report from SMILEY Adair patient was able to get up to bedside chair with 5 nurse and 1 RT assist. patient tolerated well. vital signs have been WNL all morning. chest tube has approximately 170ml of serosanguinous fluid draining since this nurses arrival. kim intact and draining adequately. patient has been changed from bipap with 65% fio2 to high flow NC at 15L. patient oxygen saturation is maintaining around 90-93%.
[2020-05-21] MEDS: oxyCODONE-APAP 5-325 mg Tablet 1 TAB PO (13:35)
--- NOTE | 2020-05-21 15:15 | PM.PN ---
Subjective Subjective: Interval history: The patient is doing significantly better today. Sitting in a chair without any BiPAP and doing well. The patient remarkably does not have any air leak. He had received Lasix yesterday. Medications: Reviewed: Yes Vitals/I&O/Wt Last Vital Signs Temp 98.4 F 05/21/20 15:00 Pulse 100 05/21/20 15:00 Resp 20 H 05/21/20 15:00 BP 118/74 05/21/20 15:00 Pulse Ox 91 05/21/20 15:00 05/21/20 05/21/20 05/21/20 06:59 14:59 22:59 Intake Total 1735.417 / 6510.000 1000 / 1000 Output Total 1190 / 2560 520 / 520 Balance 545.417 / 3950.000 480 / 480 Physical Exam Narrative: EXAM NARRATIVE: General: Patient is awake alert and oriented. In no distress today Neck: Unable to assess JVD Respiratory: Inspection: Right-sided chest tube in place, no air leak Palpation: Trachea is mildly deviated to the right Percussion: Diminished percussion note on the right chest Auscultation: Reduced breath sound in the right hemithorax compared to the left, occasional crackles on the right, intermittent wheezing and rhonchi Cardiovascular: Regular rate and rhythm, S1-S2 present, no murmur,no peripheral edema. Abdomen: Soft, nontender, distended from obesity, positive bowel sound Musculoskeletal: No obvious joint deformity, severe hip pain Skin: No rash Neuro: Mental status is normal, no gross cranial or motor dysfunction Urinary Catheter Management^: Bond: Cath Placed During This Visit: yes Reason for Continuing Indwelling Catheter: Accurate Measurement of Urinary Output in Critically Ill Patients Urinary Catheter Date of Insertion: 05/20/20 Urinary Catheter Time of Insertion: 07:30 Data : 05/21/20 03:20 05/21/20 03:20 A&P Assessment and plan (1) COPD (chronic obstructive pulmonary disease): The patient has advanced COPD. On pulmonary function test he has severe airflow obstruction. Interestingly, his DLCO was normal. The patient seems to be doing well. Remarkably, there is no evidence of air leak. Pain is well controlled. Will recommend continuing with the current nebulization treatment. Status: Acute Qualifiers: COPD type: emphysema Emphysema type: centrilobular Qualified Code(s): J43.2 - Centrilobular emphysema (2) WAN (obstructive sleep apnea): The patient should use CPAP or BiPAP at night if he is agreeable. Status: Acute (3) Chronic respiratory failure with hypoxia and hypercapnia: Patient is at high risk for perioperative complications. So far he is doing well. Status: Acute Attestations Medical Necessity Statement*: Will defer to the primary team Coding Level of Care Code Acute Tank Farm Attendant for [facility] Fwd Diagnoses COPD (chronic obstructive pulmonary disease) J43.2 COPD type: emphysema Emphysema type: centrilobular WAN (obstructive sleep apnea) G47.33 Chronic respiratory failure with hypoxia and hypercapnia J96.11; J96.12
[2020-05-21 17:28] LABS: Glucose Point of Care 203 mg/dL (70-110)
--- NOTE | 2020-05-21 20:00 | PC.NURSE ---
Assessment Pt resting in bed awake, moaning out frequently and cussing. Pt complains on pain to right chest and left hip. Rates pain 10/10. Morphine 2mg IVP given at this time. Pt educated on use of SERVICE ARCHITECT pump and verbalized understanding. Pt complains of inability to breath. Breathing is even and non-labored. On 15L High Flow NC. Right lateral chest tube draining to pleura vac with wall suction. Pleura vac was changed at this time via sterile technique. Right side throughout is diminished coarse crackles with expiratory wheezes. Left side diminished throughout. Left radial art line was removed at this time per verbal orders from Dr. Kolb. Pressure held until hypostasis achieved. Applied dry sterile dressing. Tolerated well. Non-pitting edmea noted to BLE. Sinus rhythm on bedside cardiac surgeon.
[2020-05-21] MEDS: ondansetron 2 mg/ML SDV 2 mL 4 MG IVP (20:18)
[2020-05-21 20:19] LABS: Glucose Point of Care 169 mg/dL (70-110)
--- NOTE | 2020-05-21 20:58 | PC.NURSE ---
Patient resting in bed complaining of pain. PRN pain medication administered per orders. Chest tube in place and draining appropriately. New atrium container placed for drainage.
[2020-05-22] VITALS (238 sets, daily range): BP systolic 106–157; BP diastolic 57–85; PULSE 83–110; RESP 12–27; TEMP 36.7–37.8; O2SAT 78–98
--- NOTE | 2020-05-22 02:06 | PC.NURSE ---
Patient resting in bed, rolling around in bed. Patient reports pain but doesn't PUBLIC HEALTH CLINICAL NURSE SPECIALIST pump. PRN pain medication given per orders. Call light within reach. Continue care.
[2020-05-22] MEDS: ipratropium-albuterol 3 mL Neb INHALATION ×4 (03:02→21:05)
--- NOTE | 2020-05-22 03:31 | PC.NURSE ---
Refuses lab Lab unsuccessful at lab draw X 1 attempt. Pt refuses to be stuck again and is refusing lab work at this time. Pt provided education on importance of lab results. Reinforcement needed.
[2020-05-22] MEDS: lactated ringers 1,000 ML 50 ML IV (04:29)
--- NOTE | 2020-05-22 05:53 | PC.NURSE ---
Uneventful shift: Patient rested in bed the majority of the night. Patient did toss and turn some and was always asked if patient was in pain. Patient did refuse labs this morning. Patient woke up at 0530 and is up to bedside chair watching tv at this time. Call light within reach. continue care.
--- NOTE | 2020-05-22 06:00 | XR_ITS ---
WS: [id number] XR chest 1V portable [id number] REASON FOR EXAM: POD #2 status post right upper lobectomy FINDINGS: Compared to the prior examination 05/21/2020, right chest tube remains in place position as previously . Decreasing amount of identifiable aerated lung increasing opacity in the lower right hemithorax whi ch likely represents fluid. Coarse interstitial infiltrative pattern in the left lower lung has not c hanged significantly compared to the previous day. No other interval change or new finding. XR/XR chest 1V portable [id number] IMPRESSION: Interval change in the right hemithorax as above.
--- NOTE | 2020-05-22 06:25 | PC.NURSE ---
Dr. Pruitt bedside at 0600 and requested the patient be placed NPO this morning until further notice.
[2020-05-22 06:28] LABS: Basophils # 0.1 10^3/uL (0.0-0.1); Basophils % 0.3 %; Eosinophils % 0.1 %; Hematocrit 39.9 % (42.0-52.0); Hemoglobin 13.2 g/dL (11.7-16.6); Lymphocytes # 1.6 10^3/uL (0.8-4.8); Lymphocytes % 7.3 %; Mean Corpuscular HGB Conc 33.1 g/dL (30.0-36.0); Mean Corpuscular Hemoglobin 29.7 pg (28.0-34.0); Mean Corpuscular Volume 89.7 fL (80-94); Mean Platelet Volume 9.4 fL (7.4-10.4); Monocytes # 1.2 10^3/uL (0.2-0.9); Monocytes % 5.4 %; Neutrophils # 18.43 10^3/uL (1.8-7.7); Neutrophils % 86.3 %; Nucleated Red Blood Cells % 0 %; Platelet Count 181 10^3/cmm (130-400); Red Blood Count 4.45 10^6/uL (4.1-5.3); Red Cell Distribution Width 13.6 % (12.1-15.1); White Blood Count 21.4 10^3/uL (4.0-10.0)
--- NOTE | 2020-05-22 06:33 | ANE.PACU2 ---
Inpatient post-anesthesia follow up: Airway intact: Yes Vital signs: Temperature 100.1 F Pulse Rate 103 Respiratory Rate 20 Blood Pressure 106/67 Pulse Oximetry 95 Oxygen Delivery Me thod High Flow Nasal Ca nnula Oxygen Flow Rate 15 Fraction of Inspir ed Oxygen 65 Hydration adequate: Yes Nausea and vomiting: No Pain level: 2 Mental status: Baseline Additional Comments: POD 2 Patient up in chair, most of pain complaint head or other joints--I will leave epidural in place until CT removed. C/D/I
--- NOTE | 2020-05-22 06:40 | P.PN_ITS ---
Subjective Subjective: Interval history: Stop day #2 status post right upper lobectomy. Almost complete atelectasis of the remaining right lower lobe. This is progressed since yesterday. Surprisingly, he looks remarkably good. Up in chair. Reasonable cough. We may need to consider bronchoscopy. I will confer with my colleague Dr. Brown. Vitals/I&O/Wt Last Vital Signs Temp 100.1 F H 05/22/20 04:00 Pulse 103 H 05/22/20 06:00 Resp 20 H 05/22/20 06:00 BP 106/67 05/22/20 06:00 Pulse Ox 95 05/22/20 06:00 05/21/20 05/21/20 05/22/20 14:59 22:59 06:59 Intake Total 1000 / 1000 250 / 1250 1066.667 / 2316.667 Output Total 520 / 520 894 / 1414 1196 / 2610 Balance 480 / 480 -644 / -164 -129.333 / -293.333 Physical Exam Resp: AUSCULTATION: diminished lung sounds on the right Cardio: COMMON NORMALS: regular rate, regular rhythm and S1 normal heart sound present RATE: regular rate RHYTHM: regular rhythm HEART SOUNDS: S1 normal heart sound present Urinary Catheter Management^: Bond: Cath Placed During This Visit: yes Reason for Continuing Indwelling Catheter: Accurate Measurement of Urinary Output in Critically Ill Patients Urinary Catheter Date of Insertion: 05/20/20 Urinary Catheter Time of Insertion: 07:30 Data : 05/22/20 06:23 05/21/20 03:20 A&P Assessment and plan (1) Status post lobectomy of lung: Almost complete absence of air in the remaining right lower lobe. I will discuss to my colleague Dr. Brown. We may need to consider bronchoscopy or other maneuvers. I will make n.p.o. for now. Status: Acute Attestations Medical Necessity Statement*: Status post right upper lobectomy. Pathology pending. Postop atelectasis Time Spent in Patient Care: 16 - 35 minutes Coding Level of Care Code Acute Rafter Cutting Machine Operator for g Fwd Diagnoses Status post lobectomy of lung Z90.2
[2020-05-22 06:43] LABS: Anion Gap 10.6 (5-19); Blood Urea Nitrogen 13 mg/dL (6-20); Potassium 4.6 mmol/L (3.5-5.1)
[2020-05-22 07:27] LABS: Calcium 8.2 mg/dL (8.5-10.5); Carbon Dioxide 30 mmol/L (22-29); Chloride 91 mmol/L (98-107); Glomerular Filtration Rate 138.4 mL/min (90-130); Glucose 210 mg/dL (65-115); Osmolality Calculated 272 mOsm/kg (285-295); Sodium 128 mmol/L (136-145)
[2020-05-22 07:30] LABS: Glucose Point of Care 248 mg/dL (70-110)
[2020-05-22] MEDS: atorvastatin 40 mg Tablet PO (07:54)
[2020-05-22] MEDS: pantoprazole DR 40 mg Tablet PO (07:54)
[2020-05-22] MEDS: cetirizine 10 mg Tablet PO (07:54)
[2020-05-22] MEDS: metoprolol tartrate 25 mg Tablet PO ×2 (07:54→17:11)
--- NOTE | 2020-05-22 08:37 | PC.NURSE ---
Pt walked 2 times around unit. Assistance from nursing and PT. Complained only of hip pain. Pt was able to cough well did not cough anything up. PUlls 500 on IS. 02 down to 8L high flow. Currently sitting up in chair.
[2020-05-22] MEDS: budesonide 0.5 mg/2 mL Neb 0.25 MG INHALATION ×2 (08:42→21:05)
[2020-05-22] MEDS: piperacillin-tazobactam 4.5 GM in sodium chloride 0.9% (plus) 50 ML IV ×2 (10:08→18:35)
[2020-05-22] MEDS: oxyCODONE-APAP 5-325 mg Tablet 1 TAB PO ×2 (10:52→17:11)
[2020-05-22 11:27] LABS: Glucose Point of Care 194 mg/dL (70-110)
[2020-05-22] MEDS: acetylcysteine 200 mg/mL SDV 4 mL 100 MG INHALATION ×2 (14:14→21:05)
--- NOTE | 2020-05-22 15:00 | XRR_ITS ---
PROCEDURE INFORMATION: Exam: XR Chest, 1 View Exam date and time: 05/22/2020 3:39 PM Age: 60 years old Clinical indication: Device placement; Other: Post op cabg; Prior surgery; Surgery date: Post-operative (0-2 days) TECHNIQUE: Imaging protocol: XR of the chest Views: 1 view. COMPARISON: CR XR chest 1V portable [id number] 05/22/2020 4:50 AM FINDINGS: Lungs: The left lung is clear No consolidation. Pleural space: Large opacity is seen in the right hemithorax the consistent with pleural effusion. No pneumothorax. Heart/Mediastinum: Displaced toward the right side. No cardiomegaly. Bones/joints: Unremarkable. Metallic arnie overlie the right hemithorax. A chest tube is present extending into the right upper lobe. Similar findings is seen compared to prior examination. XR/XR chest 1V portable [id number] IMPRESSION: 1. Stable large pleural effusion right hemithorax 2. Stable chest tube right upper lobe 3. Metallic arnie overlying the anterior right lung. 4. The mediastinum and heart is displaced toward the right side
--- NOTE | 2020-05-22 15:56 | PC.RESP ---
1100 cpt done with pt. pt encouraged to cough and deep breath
--- NOTE | 2020-05-22 18:00 | P.PN_ITS ---
Subjective Subjective: Interval history: The patient was seen and examined. He appears to be comfortable sitting in bed without any difficulty. Vitals are stable respiratory rate in mid teens. Chest x-ray this morning revealed near total atelectasis of the remaining right lung with mediastinal shift to the right. Since then, the patient had started extensive chest physical therapy. Currently the patient is on DuoNeb, Mucomyst, 3% sodium chloride nebulization, manual chest percussion and Acapella valve breathing. The patient was able to cough up a significant amount of sputum. Repeat chest x-ray at 3 PM today revealed some improvement in the aeration of the right lung, decrease in mediastinal shift. He was also started on Zosyn in the setting of lung atelectasis, increasing white count. His vitals have remained stable without any evidence of fever. Medications: Reviewed: Yes Vitals/I&O/Wt Last Vital Signs Temp 98.9 F 05/22/20 13:28 Pulse 91 05/22/20 16:00 Resp 18 05/22/20 17:11 BP 117/65 05/22/20 16:00 Pulse Ox 94 05/22/20 17:11 05/22/20 05/22/20 05/22/20 06:59 14:59 22:59 Intake Total 1066.667 / 2316.667 50 / 50 Output Total 1196 / 2610 1175 / 1175 Balance -129.333 / -293.333 -1175 / -1175 50 / -1125 Physical Exam Narrative: EXAM NARRATIVE: General: Patient is awake alert and oriented. In no distress at all Neck: Unable to assess JVD Respiratory: Inspection: Right-sided chest tube in place, no air leak Palpation: Trachea is mildly deviated to the right Percussion: Diminished percussion note on the right chest Auscultation: Reduced breath sound in the right hemithorax compared to the left, occasional crackles on the right, bronchial breath sound in the right posterior lower chest Cardiovascular: Regular rate and rhythm, S1-S2 present, no murmur,no peripheral edema. Abdomen: Soft, nontender, distended from obesity, positive bowel sound Musculoskeletal: No obvious joint deformity Skin: No rash Neuro: Mental status is normal, no gross cranial or motor dysfunction Urinary Catheter Management^: Bond: Cath Placed During This Visit: yes Reason for Continuing Indwelling Catheter: Accurate Measurement of Urinary Output in Critically Ill Patients Urinary Catheter Date of Insertion: 05/20/20 Urinary Catheter Time of Insertion: 07:30 Data : 05/22/20 06:23 05/22/20 06:23 Attestation for Other Data: I personally reviewed and interpreted the following: Other data: I have reviewed the patient's laboratory, microbiologic and ra diologic data. Please see the HPI for detail. The patient has developed mild hyponatremia. A&P Assessment and plan (1) Atelectasis of right lung: The patient has developed near total atelectasis of the remaining right lung. With aggressive chest physical therapy there is some improvement. We will continue this overnight. The patient to receive a chest x-ray tomorrow morning. If there is persistence of the atelectasis the patient will need a bronchoscopic evaluation. For now, the patient is on Zosyn. Status: Acute (2) COPD (chronic obstructive pulmonary disease): The patient has advanced COPD. On pulmonary function test he has severe airflow obstruction. Interestingly, his DLCO was normal. The patient clinically looks good. We will continue with the nebulization therapy. Status: Acute Qualifiers: COPD type: emphysema Emphysema type: centrilobular Qualified Code(s): J43.2 - Centrilobular emphysema (3) WAN (obstructive sleep apnea): Do not use BiPAP tonight. The positive pressure might make it difficult to expectorate the remaining secretion. Status: Acute (4) Chronic respiratory failure with hypoxia and hypercapnia: Patient is at high risk for perioperative complications. So far he is doing well other than the lung atelectasis. Status: Acute Attestations Medical Necessity Statement*: Defer to the primary team Coding Level of Care Code Acute Junior Automation Engineer for [facility] Fwd Diagnoses Atelectasis of right lung J98.11 COPD (chronic obstructive pulmonary disease) J43.2 COPD type: emphysema Emphysema type: centrilobular WAN (obstructive sleep apnea) G47.33 Chronic respiratory failure with hypoxia and hypercapnia J96.11; J96.12
[2020-05-22 18:30] LABS: Glucose Point of Care 229 mg/dL (70-110)
--- NOTE | 2020-05-22 19:54 | PC.NURSE ---
assessment R chest tube site clean dry and intact, red tinged drainage in chest tube chamber R lung diminished with ronchi noted passed on in shift report by previous nurse other lobes diminished, AO x4, speech clear, follows commands, tumbler machine operator helper equal, supine 45 degrees call light within reach
[2020-05-22] MEDS: sodium chloride 3.5% neb 4 mL Neb INHALATION (21:05)
[2020-05-22 21:33] LABS: Glucose Point of Care 165 mg/dL (70-110)
[2020-05-22] MEDS: morphine 4 mg/mL SDV 1 mL 2 MG IVP (21:50)
[2020-05-23] VITALS (30 sets, daily range): BP systolic 95–160; BP diastolic 60–115; PULSE 79–102; RESP 15–25; TEMP 36.5–36.9; O2SAT 87–98
[2020-05-23] MEDS: lactated ringers 1,000 ML 50 ML IV ×2 (00:41→21:41)
[2020-05-23] MEDS: piperacillin-tazobactam 4.5 GM in sodium chloride 0.9% (plus) 50 ML IV ×3 (01:23→19:24)
[2020-05-23] MEDS: ipratropium-albuterol 3 mL Neb INHALATION ×4 (03:29→20:28)
--- NOTE | 2020-05-23 04:38 | XR_ITS ---
WS: [id number] XR chest 1V portable [id number] REASON FOR EXAM: Chest tube placement FINDINGS: Compared to the previous examination of 05/22/2020 the right hemithorax has become completely opacifie d. There continues to be coarse interstitial infiltrative changes in the lower left lung field. No new finding or interval change. XR/XR chest 1V portable [id number] IMPRESSION: Right hemithorax is now completely opacified.
[2020-05-23] MEDS: morphine 4 mg/mL SDV 1 mL 2 MG IVP ×3 (05:20→21:40)
--- NOTE | 2020-05-23 05:41 | PC.NURSE ---
0430 O2 decreased to low 80's to 78 on 6L NC, C/O SOB with labored RR, placed on 10L Non rebreather per RT, STAT CXR ordered, O2 90's on non rebreather, no change in chest tube output, no air leakage detected, Dr. Kolb at bedside at this time, requested pt be up in chair but no N.O. at this time
--- NOTE | 2020-05-23 06:27 | PM.PN ---
Subjective Subjective: Interval history: Requiring higher flow oxygen overnight. He does not do well while laying in bed in supine position. He needs to be out much of the day. Radiographic improvement from yesterday has been lost again today with almost complete loss of aeration to the right lung though by exam it did sound a bit better. Chest tube output 395 cc past 24 hours, appears to be quite serous. Vitals/I&O/Wt Last Vital Signs Temp 98.1 F 05/23/20 00:00 Pulse 98 05/23/20 06:00 Resp 15 05/23/20 06:00 BP 158/94 05/23/20 06:00 Pulse Ox 97 05/23/20 06:00 05/22/20 05/22/20 05/23/20 14:59 22:59 06:59 Intake Total 200 / 200 1000 / 1200 Output Total 1175 / 1175 550 / 1725 3120 / 4845 Balance -1175 / -1175 -350 / -1525 -2120 / -3645 Physical Exam Resp: OTHER: Decreased breath sounds on the right side though actually sound a bit better than it does appear to be radiographically though unfortunately the x-ray has worsened since yesterday. Cardio: COMMON NORMALS: regular rate, regular rhythm and S1 normal heart sound present RATE: regular rate RHYTHM: regular rhythm HEART SOUNDS: S1 normal heart sound present Urinary Catheter Management^: Bond: Cath Placed During This Visit: yes Reason for Continuing Indwelling Catheter: Accurate Measurement of Urinary Output in Critically Ill Patients Urinary Catheter Date of Insertion: 05/20/20 Urinary Catheter Time of Insertion: 07:30 Data : 05/22/20 06:23 05/22/20 06:23 A&P Assessment and plan (1) Status post lobectomy of lung: Continues to need aggressive pulmonary toilet. Does much better when he is upright. May also need further mechanical maneuvers to assist with aeration. I will discuss again with my colleague Dr. Brown. Recommend repeating x-ray in the afternoon to determine if we are making any progress radiographically. Status: Acute Attestations Medical Necessity Statement*: Postop day #3 status post right upper lobectomy Time Spent in Patient Care: 16 - 35 minutes Coding Level of Care Code Acute Certified Registered Nurse Anesthetist for [facility] Fwd Diagnoses Status post lobectomy of lung Z90.2
--- NOTE | 2020-05-23 07:13 | PC.NURSE ---
UP to chair at this timemon 6L NC, no C/O of distress or discomfort, call light within reach
[2020-05-23] MEDS: budesonide 0.5 mg/2 mL Neb 0.25 MG INHALATION ×2 (08:19→20:28)
[2020-05-23] MEDS: acetylcysteine 200 mg/mL SDV 4 mL 100 MG INHALATION ×3 (08:19→20:33)
[2020-05-23] MEDS: sodium chloride 3.5% neb 4 mL Neb INHALATION ×2 (08:20→20:29)
[2020-05-23] MEDS: cetirizine 10 mg Tablet PO (08:23)
[2020-05-23] MEDS: pantoprazole DR 40 mg Tablet PO (08:23)
[2020-05-23] MEDS: atorvastatin 40 mg Tablet PO (08:23)
[2020-05-23] MEDS: nicotine 21 mg Patch 1 PATCH TRANSDERMA (08:23)
[2020-05-23] MEDS: metoprolol tartrate 25 mg Tablet PO ×2 (08:23→19:24)
[2020-05-23] MEDS: docusate sodium 100 mg Capsule PO (08:23)
[2020-05-23 08:30] LABS: Glucose Point of Care 192 mg/dL (70-110)
[2020-05-23 11:38] LABS: Glucose Point of Care 197 mg/dL (70-110)
[2020-05-23 12:34] LABS: Alveolar-Arterial Oxygen Gradi 10.7 mmHg (5-10); Arterial Blood Gas Hematocrit 39.1 % (42-52); Blood Gas Allen Test Pos; Blood Gas Operator Identificat CAK; Blood Gas Sample Site Radial, left; Blood Gas Sample Type Arterial; HGB O2 Sat 92.5 % (95-100); Methemoglobin 0.6 % (0.4-1.5); Oxygen Device NC; Total Hemoglobin 12.8 g/dL (14-18)
[2020-05-23 12:48] LABS: Base Excess ABG 12.4 mmol/L (-2.0-2.0); Ionized Calcium Level - ABG 1.2 mmol/L (1.1-1.4); PO2 ABG 67.4 mmHg (80.0-100.0); Potassium Level - ABG 3.9 mmol/L (3.5-5.0)
--- NOTE | 2020-05-23 14:06 | ANE.PACU2 ---
Inpatient post-anesthesia follow up: Airway intact: Yes Vital signs: Temperature 97.7 F Pulse Rate 83 Respiratory Rate 18 Blood Pressure 100/62 Pulse Oximetry 93 Oxygen Delivery Me thod Nasal Cannula Oxygen Flow Rate 3 Fraction of Inspir ed Oxygen 65 Hydration adequate: Yes Nausea and vomiting: No Pain level: 4 Mental status: Baseline Additional Comments: Epidural site intact, no signs of infection, no numbness or weakness of legs or arms, patient still has chest tubes and is in ICU
--- NOTE | 2020-05-23 15:05 | PM.MISC ---
Miscellaneous Note Purpose of Documentation: Bronchoscopy Note: Continued near complete atelectasis of the right lower lobe status post right upper lobectomy. Mr. Hernandez does appear to be giving very good effort with nursing instructions and attempting to cough and deep breathe, but his body habitus is a challenge, particular when he is in the supine position like overnight. I have conferred with my colleague Dr. Brown. We will plan for bronchoscopy tomorrow morning at 7 AM at bedside. If post procedure intubation is needed, Dr. Brown stated this should proceed and he would manage dilatory support. I discussed the rationale for bronchoscopy with Mr. Hernandez and he stated understanding and is agreeable. We will proceed tomorrow morning.
--- NOTE | 2020-05-23 16:23 | PM.PN ---
Subjective Subjective: Interval history: The patient continues to look stable clinically. His respiratory status is stable. Unfortunately, even with aggressive chest physical therapy there was no reexpansion of the remaining right lung. The patient is scheduled to undergo a bronchoscopic procedure tomorrow morning with Dr. Pruitt. The patient would be at high risk for respiratory failure during the bronchoscopy. His epidural catheter was removed today. Medications: Reviewed: Yes Vitals/I&O/Wt Last Vital Signs Temp 97.7 F 05/23/20 08:00 Pulse 83 05/23/20 13:55 Resp 18 05/23/20 13:47 BP 100/62 05/23/20 12:30 Pulse Ox 93 05/23/20 13:47 05/23/20 05/23/20 05/23/20 06:59 14:59 22:59 Intake Total 1050 / 1250 820 / 820 Output Total 3120 / 4845 1620 / 1620 Balance -2070 / -3595 -800 / -800 Physical Exam Narrative: EXAM NARRATIVE: General: Patient is awake alert and oriented. In no distress Neck: Unable to assess JVD Respiratory: Inspection: Right-sided chest tube in place, no air leak Palpation: Trachea is deviated to the right Percussion: Diminished percussion note on the right chest Auscultation: Reduced breath sound in the right hemithorax compared to the left, occasional crackles on the right, bronchial breath sound in the right posterior lower chest Cardiovascular: Regular rate and rhythm, S1-S2 present, no murmur,no peripheral edema. Abdomen: Soft, nontender, distended from obesity, positive bowel sound Musculoskeletal: No obvious joint deformity Skin: No rash Neuro: Mental status is normal, no gross cranial or motor dysfunction Urinary Catheter Management^: Bond: Cath Placed During This Visit: yes Reason for Continuing Indwelling Catheter: Accurate Measurement of Urinary Output in Critically Ill Patients Urinary Catheter Date of Insertion: 05/20/20 Urinary Catheter Time of Insertion: 07:30 Data : 05/22/20 06:23 05/22/20 06:23 Attestation for Other Data: I personally reviewed and interpreted the following: Other data: I have reviewed the patient's radiologic data. No new blood work today. A&P Assessment and plan (1) Atelectasis of right lung: The patient has failed chest physical therapy and there has been no improved aeration of the right lung. The patient is undergoing bronchoscopy evaluation tomorrow. There is high risk for respiratory failure given the patient's chronic hypercapnic and hypoxic respiratory failure. However, I do believe that the patient will be extubated will very quickly. The patient is receiving empiric antibiotic therapy. Status: Acute (2) COPD (chronic obstructive pulmonary disease): The patient has advanced COPD. On pulmonary function test he has severe airflow obstruction. Interestingly, his DLCO was normal. The patient clinically looks good. We will continue with the nebulization therapy. Status: Acute Qualifiers: COPD type: emphysema Emphysema type: centrilobular Qualified Code(s): J43.2 - Centrilobular emphysema (3) WAN (obstructive sleep apnea): Once her respiratory status improves and the patient is discharged from the hospital he would be a candidate for nocturnal BiPAP therapy given his chronic hypercapnic respiratory failure. Status: Acute (4) Chronic respiratory failure with hypoxia and hypercapnia: If the patient does not of getting intubated tomorrow, he will need to be extubated to BiPAP.. Status: Acute Attestations Medical Necessity Statement*: Will defer to the primary team will defer to the primary team Coding Level of Care Code Acute Unit Secy for [facility] Fwd Diagnoses Atelectasis of right lung J98.11 COPD (chronic obstructive pulmonary disease) J43.2 COPD type: emphysema Emphysema type: centrilobular WAN (obstructive sleep apnea) G47.33 Chronic respiratory failure with hypoxia and hypercapnia J96.11; J96.12
[2020-05-23] MEDS: oxyCODONE-APAP 5-325 mg Tablet 1 TAB PO ×2 (16:28→22:30)
--- NOTE | 2020-05-23 16:36 | PC.NURSE ---
1540-- DR THORPE AT BEDSIDE, REMOVED EPIDURAL. WILL PULL HARRISON AT 1999. PT AWARE.
[2020-05-23 18:15] LABS: Glucose Point of Care 222 mg/dL (70-110)
[2020-05-23 21:35] LABS: Glucose Point of Care 196 mg/dL (70-110)
[2020-05-24] VITALS (24 sets, daily range): BP systolic 103–159; BP diastolic 66–88; PULSE 78–101; RESP 12–27; TEMP 36.6; O2SAT 90–100
[2020-05-24] MEDS: piperacillin-tazobactam 4.5 GM in sodium chloride 0.9% (plus) 50 ML IV ×3 (02:53→17:56)
[2020-05-24] MEDS: ipratropium-albuterol 3 mL Neb INHALATION ×4 (02:54→20:43)
[2020-05-24] MEDS: acetylcysteine 200 mg/mL SDV 4 mL 100 MG INHALATION ×4 (02:55→20:43)
[2020-05-24 04:21] LABS: Basophils # 0.1 10^3/uL (0.0-0.1); Basophils % 0.4 %; Eosinophils # 0.3 10^3/uL (0.0-0.8); Hematocrit 35.7 % (42.0-52.0); Hemoglobin 11.5 g/dL (11.7-16.6); Lymphocytes # 1.7 10^3/uL (0.8-4.8); Lymphocytes % 12.7 %; Mean Corpuscular HGB Conc 32.2 g/dL (30.0-36.0); Mean Corpuscular Hemoglobin 29.1 pg (28.0-34.0); Mean Corpuscular Volume 90.4 fL (80-94); Mean Platelet Volume 10.3 fL (7.4-10.4); Monocytes # 1.1 10^3/uL (0.2-0.9); Monocytes % 8.2 %; Neutrophils # 10.14 10^3/uL (1.8-7.7); Neutrophils % 76.1 %; Nucleated Red Blood Cells % 0 %; Platelet Count 221 10^3/cmm (130-400); Red Blood Count 3.95 10^6/uL (4.1-5.3); Red Cell Distribution Width 13.3 % (12.1-15.1); White Blood Count 13.3 10^3/uL (4.0-10.0)
[2020-05-24 04:43] LABS: Anion Gap 7.6 (5-19); Blood Urea Nitrogen 9 mg/dL (6-20); Carbon Dioxide 38 mmol/L (22-29); Chloride 94 mmol/L (98-107); Glomerular Filtration Rate 220.9 mL/min (90-130); Glucose 133 mg/dL (65-115); Osmolality Calculated 283 mOsm/kg (285-295); Potassium 3.6 mmol/L (3.5-5.1); Sodium 136 mmol/L (136-145)
[2020-05-24] MEDS: morphine 4 mg/mL SDV 1 mL 2 MG IVP ×4 (05:42→23:30)
--- NOTE | 2020-05-24 05:50 | PC.NURSE ---
ASSUMING CARE Patient up to chair at change of shift watching TV. LR at 50 mL/hour and zosyn running. Patient on 2 L nasal cannula. Chest tube site has no drainage, no crepitus, hooked to suction at -20, no bubble in leak chamber. Epidural no longer in, bandaid covering site, no drainage or redness around site, and no complaints of headache or back pain.
--- NOTE | 2020-05-24 06:16 | XR_ITS ---
WS: [id number] XR chest 1V portable [id number] REASON FOR EXAM: s/p lobectomy with atelectasis: pre-bronch FINDINGS: Compared to examination of 05/23/2020 there has been some reexpansion of remaining right lung compare d to the previous exam which showed essentially complete opacification of the right hemithorax. XR/XR chest 1V portable [id number] IMPRESSION: There has been some reexpansion of right lung .
[2020-05-24 07:04] LABS: Glucose Point of Care 161 mg/dL (70-110)
--- NOTE | 2020-05-24 07:08 | ANES.PREANE2 ---
Pre-Anesthetic Assessment Pre-Anesthetic Assessment: Height/Weight: Height 1.8 m Weight 140.614 kg Temp Pulse Resp BP Pulse Ox 98.4 F 93 21 H 159/88 90 05/23/20 20:00 05/24/20 06:00 05/24/20 06:00 05/24/20 06:00 05/24/20 06:00 Preop Diagnosis: Right upper lobe mass Proposed Procedure: Operation Date: 05/20/20 07:00 Proposed Procedures p Lobectomy 71148 R91.8(Right) - Joselito Pruitt MD s Thoracotomy 54671 R91.8(Right) - Joselito Pruitt MD Operation Date: 05/24/20 07:00 Proposed Procedures p Bronchoscopy(Not Applicable) - Joselito Pruitt MD Familial anesthetic complications: None Was Beta Alex taken within 24 hours: N/A Last intake: Intake Last Liquid Date 05/20/20 Last Liquid Time 00:00 Last Solid Date 05/20/20 Last Solid Time 00:00 Exam: Pre-Anes Outpt Exam: alert, oriented x 3, clear to auscultation bilaterally and regular rate & rhythm Additional Exam Findings (including area of procedure): diminished R Airway: Cervical ROM: WNL MP: 4 Dentition: Full Pulmonary: Pulmonary: COPD and Sleep apnea Comments: R mucus plug s/p thoractomty Metabolic: Metabolic: DM, Hyperlipidemia and Morbid obesity Anesthetic Plan: ASA status: 4 Anesthesia: General Risk of > 500 ml blood loss (7ml/kg in children): No Meds/Allergies Current Medications: Current Medications Generic Name Dose Route Start Last Admin Trade Name Freq PRN Reason Stop Dose Admin Acetylcysteine 100 mg 05/22/20 09:00 05/24/20 02:55 Acetylcysteine 2 00 Mg/Ml Sdv 4 Ml INHALATION 100 mg Q6H SYLVIA Administration Albuterol/Ipratrop ium 3 ml 05/20/20 21:00 05/24/20 02:54 Ipratropium-Albu terol 3 Ml Neb INHALATION 3 ml Q6H.RESPIRATORY S CH Administration Atorvastatin Calci um 40 mg 05/21/20 09:00 05/23/20 08:23 Atorvastatin 40 Mg Tablet PO 40 mg DAILY SYLVIA Administration Budesonide 0.25 mg 05/20/20 20:00 05/23/20 20:28 Budesonide 0.5 M g/2 Ml Neb INHALATION 0.25 mg BID.RESPIRATORY S CH Administration Cetirizine HCl 10 mg 05/21/20 09:00 05/23/20 08:23 Cetirizine 10 Mg Tablet PO 10 mg DAILY SYLVIA Administration Docusate Sodium 100 mg 05/20/20 17:08 05/23/20 08:23 Docusate Sodium 100 Mg Capsule PO 100 mg BID PRN Administration Constipation (Use 1st) Guaifenesin 200 mg 05/20/20 17:08 05/21/20 04:40 Guaifenesin 100 Mg/5 Ml Udc 10 Ml PO 200 mg Q4H PRN Administration COUGH Ropivacaine 200 mg in 100 mls @ 6 mls/hr 05/20/20 08:00 05/23/20 08:38 Naropin Premix EPIDURAL 6 mls/hr .[id number] SYLVIA Administration Lactated Ringer's 1,000 mls @ 50 ml s/hr 05/20/20 14:06 05/23/20 21:41 Lactated Ringers IV 50 mls/hr .Q20H SYLVIA Administration Piperacillin Sod/T azobactam 50 mls @ 12.5 mls /hr 05/22/20 10:00 05/24/20 02:53 Sod 4.5 gm/ Sodi um Chloride IV 12.5 mls/hr Q8H SYLVIA Administration Protocol Insulin Aspart 0 unit 05/20/20 18:00 05/23/20 21:41 Insulin Aspart 1 00 Unit/1 Ml SUBCUT 6 unit WM&BEDTIME SYLVIA Administration Protocol Metoprolol Tartrat e 25 mg 05/20/20 18:00 05/23/20 19:24 Metoprolol Tartr ate 25 Mg Tablet PO 25 mg BID SYLVIA Administration Morphine Sulfate 2 mg 05/20/20 17:08 05/24/20 05:42 Morphine 4 Mg/Ml Sdv 1 Ml IVP 2 mg Q1H PRN Administration SEVERE PAIN Nicotine 1 patch 05/21/20 09:00 05/23/20 12:30 Nicotine 21 Mg P atch TRANSDERMA Not Given DAILY SYLVIA Ondansetron HCl 4 mg 05/20/20 08:00 05/21/20 20:18 Ondansetron 2 Mg /Ml Sdv 2 Ml IVP 4 mg Q4H PRN Administration NAUSEA AND VOMITI NG Oxycodone/Acetamin ophen 1 tab 05/20/20 17:08 05/23/20 22:30 Oxycodone-Apap 5 -325 Mg Tablet PO 1 tab Q6H PRN Administration MODERATE PAIN Pantoprazole Sodiu m 40 mg 05/21/20 09:00 05/23/20 08:[address] 40 Mg Tablet PO 40 mg DAILY SYLVIA Administration Sodium Chloride 4 ml 05/22/20 20:00 05/23/20 20:29 Sodium Chloride 3.5% Neb 4 Ml Neb INHALATION 4 ml BID.RESPIRATORY S CH Administration PFSH Anesthesia PFSH: Medical History COPD (chronic obstructive pulmonary disease) New onset type 2 diabetes mellitus WAN (obstructive sleep apnea) Social History Smoking and tobacco status: current every day smoker cigarettes Packs smoked per day: 1.5 [ Other cigarette details: 1.5ppd x 45 years ] Quit status (tobacco): not considering quitting Second hand smoke exposure: No Smoking risk assessment/counseling performed?: Yes Alcohol intake: current Alcohol intake frequency: holidays/special occasions only Lives independently: Yes Household members: spouse Housing: House Marital status: service: No Current occupational status: employed History of recent travel: Yes Out of state: Yes Current gender identity: Male Data Anesthesia CBC & Chem 7: 05/24/20 03:35 05/24/20 03:35 Other Labs: Laboratory Results - last 48 hr 05/22/20 05/22/20 05/22/20 06:23 07:23 11:22 WBC RBC Hgb Hct MCV MCH MCHC RDW Plt Count MPV Neut % (Auto) Lymph % (Auto) [place] % (Auto) Eos % (Auto) Baso % (Auto) Neut # (Auto) Lymph # (Auto) [place] # (Auto) Eos # (Auto) Baso # (Auto) Nucleated RBC % (auto) Nucleated RBCs # Specimen Type Sample Site ABG pH ABG pCO2 ABG pO2 ABG HCO3 ABG O2 Saturation ABG Base Excess Jack Test A-a O2 Gradient Hematocrit Hgb O2 Saturation Carboxyhemoglobin Methemoglobin Total Hemoglobin Potassium Ionized Calcium O2 Delivery Device FiO2 Collective Bargaining Specialist ID Sodium 128 L Chloride 91 L Carbon Dioxide 30 H Anion Gap BUN Creatinine 0.6 L GFR Calculation 138.4 H Glucose 210 H POC Glucose 248 194 Calculated Osmolality 272 L Calcium 8.2 L 05/22/20 05/22/20 05/23/20 18:23 21:27 08:13 WBC RBC Hgb Hct MCV MCH MCHC RDW Plt Count MPV Neut % (Auto) Lymph % (Auto) [place] % (Auto) Eos % (Auto) Baso % (Auto) Neut # (Auto) Lymph # (Auto) [place] # (Auto) Eos # (Auto) Baso # (Auto) Nucleated RBC % (auto) Nucleated RBCs # Specimen Type Sample Site ABG pH ABG pCO2 ABG pO2 ABG HCO3 ABG O2 Saturation ABG Base Excess Jack Test A-a O2 Gradient Hematocrit Hgb O2 Saturation Carboxyhemoglobin Methemoglobin Total Hemoglobin Potassium Ionized Calcium O2 Delivery Device FiO2 Collective Bargaining Specialist ID Sodium Chloride Carbon Dioxide Anion Gap BUN Creatinine GFR Calculation Glucose POC Glucose 229 165 192 Calculated Osmolality Calcium 05/23/20 05/23/20 05/23/20 11:26 12:23 18:12 WBC RBC Hgb Hct MCV MCH MCHC RDW Plt Count MPV Neut % (Auto) Lymph % (Auto) [place] % (Auto) Eos % (Auto) Baso % (Auto) Neut # (Auto) Lymph # (Auto) [place] # (Auto) Eos # (Auto) Baso # (Auto) Nucleated RBC % (auto) Nucleated RBCs # Specimen Type Arterial Sample Site Radial, left ABG pH 7.40 ABG pCO2 65.0 H* ABG pO2 67.4 L ABG HCO3 40.0 H ABG O2 Saturation 95.0 ABG Base Excess 12.4 H Jack Test Pos A-a O2 Gradient 10.7 H Hematocrit 39.1 L Hgb O2 Saturation 92.5 L Carboxyhemoglobin 2.0 Methemoglobin 0.6 Total Hemoglobin 12.8 L Potassium 3.9 Ionized Calcium 1.2 O2 Delivery Device Nc FiO2 32.0 Collective Bargaining Specialist ID Cak Sodium 135.0 Chloride Carbon Dioxide Anion Gap BUN Creatinine GFR Calculation Glucose 175.0 H POC Glucose 197 222 Calculated Osmolality Calcium 05/23/20 05/24/20 05/24/20 21:32 03:35 03:35 WBC 13.3 H RBC 3.95 L Hgb 11.5 L Hct 35.7 L MCV 90.4 MCH 29.1 MCHC 32.2 RDW 13.3 Plt Count 221 MPV 10.3 Neut % (Auto) 76.1 Lymph % (Auto) 12.7 [place] % (Auto) 8.2 Eos % (Auto) 2.0 Baso % (Auto) 0.4 Neut # (Auto) 10.14 H Lymph # (Auto) 1.7 [place] # (Auto) 1.1 H Eos # (Auto) 0.3 Baso # (Auto) 0.1 Nucleated RBC % (auto) 0 Nucleated RBCs # 0.0 Specimen Type Sample Site ABG pH ABG pCO2 ABG pO2 ABG HCO3 ABG O2 Saturation ABG Base Excess Jack Test A-a O2 Gradient Hematocrit Hgb O2 Saturation Carboxyhemoglobin Methemoglobin Total Hemoglobin Potassium 3.6 Ionized Calcium O2 Delivery Device FiO2 Collective Bargaining Specialist ID Sodium 136 Chloride 94 L Carbon Dioxide 38 H Anion Gap 7.6 BUN 9 Creatinine 0.4 L GFR Calculation 220.9 H Glucose 133 H POC Glucose 196 Calculated Osmolality 283 L Calcium 8.0 L 05/24/20 07:01 WBC RBC Hgb Hct MCV MCH MCHC RDW Plt Count MPV Neut % (Auto) Lymph % (Auto) [place] % (Auto) Eos % (Auto) Baso % (Auto) Neut # (Auto) Lymph # (Auto) [place] # (Auto) Eos # (Auto) Baso # (Auto) Nucleated RBC % (auto) Nucleated RBCs # Specimen Type Sample Site ABG pH ABG pCO2 ABG pO2 ABG HCO3 ABG O2 Saturation ABG Base Excess Jack Test A-a O2 Gradient Hematocrit Hgb O2 Saturation Carboxyhemoglobin Methemoglobin Total Hemoglobin Potassium Ionized Calcium O2 Delivery Device FiO2 Collective Bargaining Specialist ID Sodium Chloride Carbon Dioxide Anion Gap BUN Creatinine GFR Calculation Glucose POC Glucose 161 Calculated Osmolality Calcium Cardiac Studies: No Data to Display
--- NOTE | 2020-05-24 07:11 | PC.NURSE ---
OXYGEN Patients oxygen decreased to mid 80s while sleeping. Patient turned up to 3L nasal cannula.
--- NOTE | 2020-05-24 07:12 | PC.NURSE ---
PHYSICIAN ROUNDING Dr. Pruitt rounding this morning. Notified of coughing and sputum production. CXR ordered to further evaluate if bronchoscopy needed. Dr. Pruitt assessed CXR and tentatively doing bronchoscopy at 0730. Passed on in change of shift report. 240 mL output with chest tube and 1,000 mL urine output this shift.
--- NOTE | 2020-05-24 07:12 | ANE.PACU2 ---
Inpatient post-anesthesia follow up: Airway intact: Yes Vital signs: Temperature 98.4 F Pulse Rate 93 Respiratory Rate 21 Blood Pressure 159/88 Pulse Oximetry 90 Oxygen Delivery Me thod Nasal Cannula Oxygen Flow Rate 3 Fraction of Inspir ed Oxygen 65 Hydration adequate: Yes Nausea and vomiting: No Pain level: 2 Mental status: Baseline Additional Comments: Epidural removed last night by Dr. Kolb, no signs of infection at epidural site. No residual neurologic deficits.
[2020-05-24] MEDS: propofol 1,000 MG/100 ML INJ 16.9 MG IV (07:42)
--- NOTE | 2020-05-24 08:09 | XR_ITS ---
WS: [id number] XR chest 1V portable [id number] REASON FOR EXAM: bronch FINDINGS: Compared to the examination of 2 hours earlier, more aerated lung parenchyma is now identified. There is diffuse infiltrative change within this reexpanded lung. No other interval change or new finding. XR/XR chest 1V portable [id number] IMPRESSION: Increased expansion of the remaining right lung compared to examination of 2 ho urs previous.
[2020-05-24] MEDS: budesonide 0.5 mg/2 mL Neb 0.25 MG INHALATION ×2 (08:30→20:43)
[2020-05-24] MEDS: sodium chloride 3.5% neb 4 mL Neb INHALATION ×2 (08:32→20:43)
--- NOTE | 2020-05-24 08:33 | PM.OP ---
Operative Report Date of procedure: May 24, 2020 Pre-op Diagnosis: Status post right upper lobectomy with postop atelectasis right lower lobe Post-op diagnosis: same Procedure Done: Flexible therapeutic bronchoscopy Specimens removed/disposition: Mucous plug right lower lobe for culture Anesthesia: General Findings: Secretions and mucous plugging up to the main nichole Condition: stable Disposition: ICU Brief History: 60-year-old gentleman now 4 days status post right upper lobectomy with postop persistent atelectasis right lower lobe despite aggressive pulmonary toilet. Bronchoscopy is recommended to assess for possible mucous plugging. Details and risk of procedure carefully discussed and appropriate consent signed. Procedure: Procedure: Mr. Hernandez underwent general endotracheal anesthesia with an 8.0 endotracheal tube. With adequate anesthesia, flexible bronchoscope was inserted through the endotracheal tube. In a methodical fashion the trachea, nichole, right main bronchus and associated lobar bronchi were inspected. In a similar fashion the left side was inspected. Secretions were cleared as needed to allow for adequate inspection. Normal saline or normal saline and bicarbonate solution were used to clear thick or tenacious secretions. Specimens were collected for culture and Gram stain. He currently is on [facility] empirically Findings: Main nichole was sharp. There was secretions pulling up to the level of the nichole on the right side. The left side had modest edema and minimal erythema but no lesions or substantial secretions or plugging. Active suction was performed on the right side and specimen collected for culture. Continued suction and irrigation was utilized to clear the entire right side. The right upper lobe bronchial stump appeared to be intact. Right middle lobe bronchus closure also appears to be intact. Following clearing of the majority of the secretions there was further mucus plugging noted in the right lower lobe posteriorly. This also underwent aggressive suction as well as irrigation with a solution of saline and bicarbonate. All secretions were cleared. Once completed, the scope was withdrawn under direct visualization confirming cleared secretions and no substantial bleeding. Endoscopic photos were taken as required to document pathology. David was awakened from general anesthesia and extubated in the ICU bed. Post procedure chest x-ray reveals substantially improved aeration to the right lower lobe.
--- NOTE | 2020-05-24 08:55 | PC.NURSE ---
0730--BRONCHOSCOPY ANESTHESIA HERE & GI LAB TO SET UP FOR BRONCHOSCOPY. SUCTION, IV FLUIDS & MEDS ORDERED & ROOM SET UP FOR PROCEDURE. RT HERE WITH VENT. TIME OUT DONE BY GI LAB, CONSENT SIGNED. 0800-PROCEDURE DONE. TOLERATED WELL. ABLE TO BE EXTUBATED, PLACED ON NRB. NAGGING COUGH NOTED, PRODUCTIVE COUGH.
--- NOTE | 2020-05-24 09:37 | PC.NURSE ---
09- HARRISON CATHETER REMOVED. TOLERATED WELL. TOLERATING ICE CHIPS WELL. PT REQUESTED TO HAVE HIS DOOR/CURTAIN CLOSED SO THAT HE CAN REST THIS MORNING. PLACED ON 6L/NC
[2020-05-24] MEDS: metoprolol tartrate 25 mg Tablet PO ×2 (12:05→18:10)
[2020-05-24] MEDS: oxyCODONE-APAP 5-325 mg Tablet 1 TAB PO ×2 (12:05→19:26)
[2020-05-24] MEDS: docusate sodium 100 mg Capsule PO (12:05)
[2020-05-24] MEDS: cetirizine 10 mg Tablet PO (12:06)
[2020-05-24] MEDS: pantoprazole DR 40 mg Tablet PO (12:06)
[2020-05-24] MEDS: nicotine 21 mg Patch 1 PATCH TRANSDERMA (12:06)
[2020-05-24] MEDS: atorvastatin 40 mg Tablet PO (12:06)
[2020-05-24 13:12] LABS: Glucose Point of Care 171 mg/dL (70-110)
--- NOTE | 2020-05-24 17:11 | ANE.PACU2 ---
Inpatient post-anesthesia follow up: Airway intact: Yes Vital signs: Temperature 98.4 F Pulse Rate 80 Respiratory Rate 18 Blood Pressure 125/67 Pulse Oximetry 95 Oxygen Delivery Me thod Nasal Cannula Oxygen Flow Rate 6 Fraction of Inspir ed Oxygen 100 Hydration adequate: Yes Nausea and vomiting: No Pain level: 5 Mental status: Baseline
[2020-05-24 17:51] LABS: Glucose Point of Care 209 mg/dL (70-110)
[2020-05-24] MEDS: lactated ringers 1,000 ML 50 ML IV (17:56)
--- NOTE | 2020-05-24 18:23 | PC.NURSE ---
UP AMBULATING WITH THERAPY. VISITOR HAS BEEN AT BEDSIDE, BROUGHT PT PIZZA FOR DINNER. ENCOURAGED TO COUGH & DEEP BREATHE FREQUENTLY.
[2020-05-24 20:50] LABS: Glucose Point of Care 157 mg/dL (70-110)
[2020-05-25] VITALS (21 sets, daily range): BP systolic 97–156; BP diastolic 55–83; PULSE 79–89; RESP 14–32; TEMP 36.6–37.2; O2SAT 89–96
[2020-05-25] MEDS: oxyCODONE-APAP 5-325 mg Tablet 1 TAB PO ×4 (01:09→20:02)
[2020-05-25] MEDS: morphine 4 mg/mL SDV 1 mL 2 MG IVP ×2 (01:26→05:26)
[2020-05-25] MEDS: piperacillin-tazobactam 4.5 GM in sodium chloride 0.9% (plus) 50 ML IV ×3 (01:26→18:06)
[2020-05-25] MEDS: ipratropium-albuterol 3 mL Neb INHALATION ×4 (02:55→21:01)
[2020-05-25] MEDS: acetylcysteine 200 mg/mL SDV 4 mL 100 MG INHALATION ×3 (02:55→21:02)
[2020-05-25] MEDS: HYDROmorphone 1 mg/mL INJ 1 mL 2 MG IVP (03:11)
[2020-05-25] MEDS: lactated ringers 1,000 ML 50 ML IV (04:22)
[2020-05-25 04:51] LABS: Basophils # 0.1 10^3/uL (0.0-0.1); Basophils % 0.6 %; Eosinophils # 0.3 10^3/uL (0.0-0.8); Eosinophils % 2.4 %; Hematocrit 36.9 % (42.0-52.0); Hemoglobin 11.7 g/dL (11.7-16.6); Lymphocytes # 1.7 10^3/uL (0.8-4.8); Lymphocytes % 14.9 %; Mean Corpuscular HGB Conc 31.7 g/dL (30.0-36.0); Mean Corpuscular Hemoglobin 29.4 pg (28.0-34.0); Mean Corpuscular Volume 92.7 fL (80-94); Mean Platelet Volume 9.8 fL (7.4-10.4); Monocytes # 0.9 10^3/uL (0.2-0.9); Monocytes % 8.1 %; Neutrophils % 73.1 %; Nucleated Red Blood Cells % 0 %; Platelet Count 230 10^3/cmm (130-400); Red Blood Count 3.98 10^6/uL (4.1-5.3); Red Cell Distribution Width 13.5 % (12.1-15.1); White Blood Count 11.6 10^3/uL (4.0-10.0)
[2020-05-25 05:17] LABS: Anion Gap 8.3 (5-19); Blood Urea Nitrogen 9 mg/dL (6-20); Calcium 8.5 mg/dL (8.5-10.5); Carbon Dioxide 38 mmol/L (22-29); Chloride 94 mmol/L (98-107); Glomerular Filtration Rate 170.8 mL/min (90-130); Glucose 150 mg/dL (65-115); Osmolality Calculated 286 mOsm/kg (285-295); Potassium 3.3 mmol/L (3.5-5.1); Sodium 137 mmol/L (136-145)
--- NOTE | 2020-05-25 06:00 | XRR_ITS ---
PROCEDURE INFORMATION: Exam: XR Chest, 1 View Exam date and time: 05/25/2020 5:24 AM Age: 60 years old Clinical indication: Condition or disease; Other: S/P segmentectomy and bronchoscopy; Prior surgery; Surgery date: 3-7 days post-operative; Additional info: Status post segmentectomy and postop bronchoscopy TECHNIQUE: Imaging protocol: XR of the chest Views: 1 view. COMPARISON: CR XR chest 1V portable [id number] 05/24/2020 8:11 AM FINDINGS: Tubes, catheters and devices: A thoracostomy tube is seen with its tip adjacent to the superior mediastinum on the right. Lungs: There has been partial right lobectomy. There is moderate volume loss seen within the right hemithorax. A small pleural effusion is seen that obscures the right hemidiaphragm and is seen adjacent to the lateral aspect of the right hemithorax. There are some linear opacity seen in the left lower hemithorax and there is mild indistinctness of the pulmonary vasculature, findings that could represent mild postoperative volume overload. Pleural space: Unremarkable. No pleural effusion. No pneumothorax. Heart/Mediastinum: Unremarkable. No cardiomegaly. Bones/joints: Unremarkable. XR/XR chest 1V portable [id number] IMPRESSION: 1. Postoperative changes seen within the right hemithorax similar to those present in yesterday's examination. 2. Linear opacities seen in the left lower hemithorax and some mild indistinctness of the pulmonary vasculature, findings could represent mild volume overload.
--- NOTE | 2020-05-25 07:40 | PC.NURSE ---
Discussed with pt the importances of IS and Acapella use. Pt said I know. That is what they've been telling me. I 'll do it later
[2020-05-25 07:48] LABS: Glucose Point of Care 147 mg/dL (70-110)
--- NOTE | 2020-05-25 08:50 | PC.NURSE ---
Pt strongly encouraged to use IS. 500 ml maximum noted. He tired 5 times.
[2020-05-25] MEDS: sodium chloride 3.5% neb 4 mL Neb INHALATION (08:59)
[2020-05-25] MEDS: budesonide 0.5 mg/2 mL Neb 0.25 MG INHALATION ×2 (08:59→21:01)
[2020-05-25] MEDS: atorvastatin 40 mg Tablet PO (09:08)
[2020-05-25] MEDS: pantoprazole DR 40 mg Tablet PO (09:08)
[2020-05-25] MEDS: cetirizine 10 mg Tablet PO (09:08)
[2020-05-25] MEDS: nicotine 21 mg Patch 1 PATCH TRANSDERMA (09:09)
[2020-05-25] MEDS: metoprolol tartrate 25 mg Tablet PO ×2 (09:09→18:06)
--- NOTE | 2020-05-25 09:38 | PM.PN ---
Subjective Subjective: Interval history: Postop day #5 status post right upper and middle lobectomies. Pulmonary pathology is returned non-small cell carcinoma. I have spoke personally with pathology yesterday. Final report is still pending. Bronchoscopy yesterday recovered quite a bit of mucus plugging on the right side. This substantially improved his right lower lobe aeration, though unfortunately, it is beginning to decrease again this morning. Chest tube output substantially up the past 24 hours to enter in 50 cc, though serous. This would be consistent with right lower lobe reexpansion and recovery of some space in the right hemithorax. Mr. Hernandez is only able to pull about 750 cc on incentive spirometry. His cough is modestly effective. He is sitting up quite a bit however. White count is down since bronchoscopy. Vitals/I&O/Wt Last Vital Signs Temp 97.8 F 05/24/20 18:00 Pulse 87 05/25/20 09:15 Resp 18 05/25/20 09:15 BP 133/70 05/25/20 06:00 Pulse Ox 93 05/25/20 09:15 05/24/20 05/25/20 05/25/20 22:59 06:59 14:59 Intake Total 1860 / 1915.07 1071.667 / 2986.737 Output Total 300 / 600 250 / 850 Balance 1560 / 1315.07 821.667 / 2136.737 Physical Exam Chest: COMMONS NORMALS: normal inspection of the chest and normal palpation of entire chest wall Resp: AUSCULTATION: diminished lung sounds on the right throughout Cardio: COMMON NORMALS: regular rate, regular rhythm and S1 normal heart sound present RATE: regular rate RHYTHM: regular rhythm HEART SOUNDS: S1 normal heart sound present Extremity: COMMON NORMALS: no clubbing, cyanosis or edema Urinary Catheter Management^: Bond: Cath Placed During This Visit: yes Reason for Continuing Indwelling Catheter: Accurate Measurement of Urinary Output in Critically Ill Patients Urinary Catheter Date of Insertion: 05/20/20 Urinary Catheter Time of Insertion: 07:30 Data : 05/25/20 04:13 05/25/20 04:13 Micro: Microbiology 05/24/20 07:58 Gram Stain - Final Lung Right Lower Lobe A&P Assessment and plan (1) Status post lobectomy of lung: Postop day #5 status post right upper middle lobectomies. Pathology has returned non-small cell carcinoma with a final report still pending. Plan: He continues to need aggressive pulmonary toilet and incentive spirometry. Chest tube output is still too high to allow for chest tube removal and probably represents reexpansion of the right lower lobe and recovery of some space in the right hemithorax. Status: Acute Attestations Medical Necessity Statement*: Status post lobectomy for non-small cell carcinoma Time Spent in Patient Care: 16 - 35 minutes Coding Level of Care Code Acute Last Pattern Grader for Chg Fwd Diagnoses Status post lobectomy of lung Z90.2
[2020-05-25] MEDS: enoxaparin 40 mg/0.4 mL Syringe SUBCUT (10:07)
[2020-05-25 11:46] LABS: Glucose Point of Care 160 mg/dL (70-110)
--- NOTE | 2020-05-25 16:30 | PC.NURSE ---
Pt's here to visit. She brought a double cheeseburger and fries for the patient.
[2020-05-25 16:56] LABS: Glucose Point of Care 122 mg/dL (70-110)
--- NOTE | 2020-05-25 18:51 | PC.NURSE ---
Shift summary: Pt has spent most of the day sitting on side of bed. He has been ambulating twice. He needs encouragement to use IS and acapella. When asked if he uses the IS he states he has just corbett it, this nurse has visualized it 3 times. He gets surly when IS held up for him. He was able to get up to 1000. His lungs sounds on the right are coarse. He is down to 7lpm/NC. He had 160 ml of serous drainage out of chest tube. His incision is well approximated and arnie intact. Dressings changed today. He eats all of his meals except the vegetables. He has been to the bathroom to urinate 3 times today, he has missed the toilet twice. His common-law in to visit him today.
--- NOTE | 2020-05-25 19:20 | PC.NURSE ---
Report given to SMILEY Estrada.
[2020-05-25 21:04] LABS: Glucose Point of Care 153 mg/dL (70-110)
[2020-05-26] VITALS (26 sets, daily range): BP systolic 99–136; BP diastolic 46–75; PULSE 76–89; RESP 12–28; TEMP 36.7–37; O2SAT 88–98
[2020-05-26] MEDS: morphine 4 mg/mL SDV 1 mL 2 MG IVP ×2 (00:30→19:30)
[2020-05-26] MEDS: piperacillin-tazobactam 4.5 GM in sodium chloride 0.9% (plus) 50 ML IV ×3 (02:05→17:21)
[2020-05-26] MEDS: ipratropium-albuterol 3 mL Neb INHALATION ×4 (02:55→20:08)
[2020-05-26] MEDS: oxyCODONE-APAP 5-325 mg Tablet 1 TAB PO ×2 (04:31→19:30)
--- NOTE | 2020-05-26 06:00 | XRR_ITS ---
PROCEDURE INFORMATION: Exam: XR Chest, 1 View Exam date and time: 05/26/2020 5:19 AM Age: 60 years old Clinical indication: Dyspnea; Prior surgery; Surgery date: 3-7 days post-operative; Additional info: Status post bronchoscopy for postop atelectasis status post TECHNIQUE: Imaging protocol: XR of the chest Views: 1 view. COMPARISON: CR XR chest 1V portable [id number] 05/25/2020 5:12 AM FINDINGS: Tubes, catheters and devices: No change in positioning of the right chest tube. Lungs: Continued evidence of previous resection of part of the right lung. No interval consolidation in the left lung. Pleural space: Continued pleural space widening in the lateral and apical portions of the right hemithorax. No pneumothorax. Possible interval decrease in right pleural fluid considering interval visualization of more of the right hemidiaphragm. Heart/Mediastinum: Continued shift of the mediastinum to the right. Continued cardiomegaly. Vasculature: Aortic elongation again evident. Bones/joints: No apparent acute bony disease. Soft tissues: Continued oblique line of skin arnie over the right chest. XR/XR chest 1V portable [id number] IMPRESSION: Possible interval decrease in right pleural fluid without other change. Stable positioning of the right chest tube and continued other findings related to resection of part of the right lung.
[2020-05-26] MEDS: acetylcysteine 200 mg/mL SDV 4 mL 100 MG INHALATION ×3 (08:54→20:07)
[2020-05-26] MEDS: budesonide 0.5 mg/2 mL Neb 0.25 MG INHALATION ×2 (08:54→20:08)
[2020-05-26] MEDS: sodium chloride 3.5% neb 4 mL Neb INHALATION ×2 (08:55→20:08)
[2020-05-26] MEDS: metoprolol tartrate 25 mg Tablet PO ×2 (09:14→17:23)
[2020-05-26] MEDS: pantoprazole DR 40 mg Tablet PO (09:14)
[2020-05-26] MEDS: atorvastatin 40 mg Tablet PO (09:14)
[2020-05-26] MEDS: enoxaparin 40 mg/0.4 mL Syringe SUBCUT (09:14)
[2020-05-26] MEDS: nicotine 21 mg Patch 1 PATCH TRANSDERMA (09:14)
[2020-05-26] MEDS: cetirizine 10 mg Tablet PO (09:14)
--- NOTE | 2020-05-26 10:41 | P.PN_ITS ---
Subjective Subjective: Interval history: Postop day #6 status post right upper middle lobectomies. Made 2 laps around the unit today though still requires substantial encouragement and motivation to perform pulmonary toilet. Surprisingly, his chest x-ray does look improved with less right pleural effusion and there is more aeration to the right lower lobe though there is some pleural thickening and perhaps a small loculation laterally and inferiorly. Drain remains in good position. I do note that he is intake and output was up about 3 L yesterday. Vitals/I&O/Wt Last Vital Signs Temp 98.0 F 05/26/20 09:05 Pulse 87 05/26/20 09:05 Resp 15 05/26/20 09:05 BP 117/58 05/26/20 07:00 Pulse Ox 93 05/26/20 09:05 05/25/20 05/26/20 05/26/20 22:59 06:59 14:59 Intake Total 1300 / 2850 250 / 3100 500 / 500 Output Total 50 / 210 120 / 330 Balance 1250 / 2640 130 / 2770 500 / 500 Physical Exam Chest: COMMONS NORMALS: normal inspection of the chest and normal palpation of entire chest wall Resp: AUSCULTATION: diminished lung sounds on the right in the lower lung leyva Urinary Catheter Management^: Bond: Cath Placed During This Visit: yes Reason for Continuing Indwelling Catheter: Accurate Measurement of Urinary Output in Critically Ill Patients Urinary Catheter Date of Insertion: 05/20/20 Urinary Catheter Time of Insertion: 07:30 Data : 05/25/20 04:13 05/25/20 04:13 Micro: Microbiology 05/24/20 07:58 Gram Stain - Final Lung Right Lower Lobe Bronchial Washings Culture - Preliminary A&P Assessment and plan (1) Status post lobectomy of lung: Postop day #6. Some improved aeration to the right lower lobe. Still requires substantial motivation however. Plan: Lasix 2 mg p.o. now. Potassium chloride 40 mill equivalents IV piggyback. CBC, BMP, magnesium, phosphorus level in a.m. Dressing change today. Continue aggressive pulmonary toilet. Perhaps may be able to remove chest tubes later today or tomorrow. Status: Acute Attestations Medical Necessity Statement*: Postop day #6 that is post lobectomy. Time Spent in Patient Care: 16 - 35 minutes Coding Level of Care Code Acute Oven Equipment Repairer for Chg Fwd Diagnoses Status post lobectomy of lung Z90.2
[2020-05-26 11:02] LABS: Glucose Point of Care 137 mg/dL (70-110)
[2020-05-26] MEDS: FUROsemide 20 mg Tablet PO (11:32)
[2020-05-26] MEDS: lidocaine 1% 5 ML in potassium chloride premix 100 ML 25 ML IV (11:47)
--- NOTE | 2020-05-26 14:01 | PC.NURSE ---
SHIFT UPDATE 0700- Patient resting quietly in bed. Chest tube attached to suction. Dressing clean, dry, intact. o2 in place a 5 lpm via NC. Patient sat up on the side of the bed for breakfast. 0800- Patient walked throughout unit - 2 laps with walker. Denies c/o during this time. 4822-2550- Patient sat up on side of bed for meals. Refused to walk after lunch. Up to bathroom. Dressing changed per verbal orders from DR. Pruitt. Patient non-compliant with IS/acapella device. Encouraged to use Q1 hour - patient gets agitated, states that he has been using it. 1410-Currently resting in bed without c/o voiced at this time.
[2020-05-26 16:41] LABS: Glucose Point of Care 125 mg/dL (70-110)
[2020-05-26 16:52] LABS: Glucose Point of Care 213 mg/dL (70-110)
--- NOTE | 2020-05-26 18:44 | PC.NURSE ---
SHIFT UPDATE- [id number]: resting in bed 1550- Ambulating on unit - 2 laps total. [id number]: Sitting up in chair. Complete IS/acapella device as directed. Denies c/o during this time. Vitals stable.
[2020-05-26 19:43] LABS: Glucose Point of Care 171 mg/dL (70-110)
--- NOTE | 2020-05-26 21:41 | PC.NURSE ---
Upon coming on shift patient is very angry and states I am hurting, I want to go home, I did not sleep good last night and did not sleep today because this bed is so uncomfortable. Different bed placed in room, Assisted patient to bathroom and bed, pain medications given.
--- NOTE | 2020-05-26 21:57 | PC.NURSE ---
2100 - Sleeping, no s/sx of pain or discomfort.
[2020-05-27] VITALS (31 sets, daily range): BP systolic 97–138; BP diastolic 44–97; PULSE 76–99; RESP 14–25; TEMP 36.6–36.8; O2SAT 90–95
[2020-05-27] MEDS: piperacillin-tazobactam 4.5 GM in sodium chloride 0.9% (plus) 50 ML IV ×3 (02:14→17:41)
[2020-05-27] MEDS: acetylcysteine 200 mg/mL SDV 4 mL 100 MG INHALATION ×4 (02:26→21:43)
[2020-05-27] MEDS: ipratropium-albuterol 3 mL Neb INHALATION ×4 (02:26→21:42)
[2020-05-27 05:34] LABS: Basophils # 0.1 10^3/uL (0.0-0.1); Basophils % 0.5 %; Eosinophils # 0.2 10^3/uL (0.0-0.8); Hemoglobin 11.4 g/dL (11.7-16.6); Lymphocytes # 1.6 10^3/uL (0.8-4.8); Lymphocytes % 13.9 %; Mean Corpuscular HGB Conc 31.7 g/dL (30.0-36.0); Mean Corpuscular Hemoglobin 29.6 pg (28.0-34.0); Mean Corpuscular Volume 93.5 fL (80-94); Mean Platelet Volume 9.6 fL (7.4-10.4); Monocytes # 0.9 10^3/uL (0.2-0.9); Monocytes % 7.9 %; Neutrophils # 8.54 10^3/uL (1.8-7.7); Neutrophils % 74.7 %; Nucleated Red Blood Cells % 0 %; Platelet Count 259 10^3/cmm (130-400); Red Blood Count 3.85 10^6/uL (4.1-5.3); Red Cell Distribution Width 13.8 % (12.1-15.1); White Blood Count 11.5 10^3/uL (4.0-10.0)
[2020-05-27 05:50] LABS: Anion Gap 7.6 (5-19); Blood Urea Nitrogen 10 mg/dL (6-20); Calcium 8.5 mg/dL (8.5-10.5); Carbon Dioxide 38 mmol/L (22-29); Chloride 96 mmol/L (98-107); Glomerular Filtration Rate 170.8 mL/min (90-130); Glucose 136 mg/dL (65-115); Osmolality Calculated 287 mOsm/kg (285-295); Phosphorus 3.6 mg/dL (2.5-4.5); Potassium 3.6 mmol/L (3.5-5.1); Sodium 138 mmol/L (136-145)
--- NOTE | 2020-05-27 06:00 | XR_ITS ---
WS: [id number] XR chest 1V portable [id number] REASON FOR EXAM: Status post lobectomy/postop bronchoscopy/diuresis FINDINGS: The chest is unchanged compared to the examination of 05/26/2020. Patchy opacity in the left lower lung. Left chest tube in place with partially reexpanded residual right lung with diffuse interstitial sorensen ges. Right pleural fluid. XR/XR chest 1V portable [id number] IMPRESSION: Stable abnormal chest as above.
--- NOTE | 2020-05-27 06:39 | PC.NURSE ---
0600 - Right Pleural chest tube discontinued per Dr. Pruitt. Tolerated well. Assisted to bathroom.
--- NOTE | 2020-05-27 06:44 | PM.PN ---
Subjective Subjective: Interval history: Postop day #7 status post right upper middle lobectomies. She has about 230 cc past 24 hours. Chest x-ray still shows a reasonable aeration to the right lower lobe though still needs pulmonary toilet. Uneventful night. Still requiring some modest amount of supplemental oxygen. Or, discomfort under good control. Vitals/I&O/Wt Last Vital Signs Temp 98.2 F 05/27/20 00:00 Pulse 90 05/27/20 05:00 Resp 18 05/27/20 05:00 BP 130/75 05/27/20 05:00 Pulse Ox 91 05/27/20 05:00 05/26/20 05/26/20 05/27/20 14:59 22:59 06:59 Intake Total 750 / 750 900 / 1650 500 / 2150 Output Total 50 / 50 80 / 130 Balance 750 / 750 850 / 1600 / 2020 Physical Exam Chest: COMMONS NORMALS: normal inspection of the chest (Thoracotomy incision intact and dry. Chest tube removed.) and normal palpation of entire chest wall Resp: OTHER: Still decreased breath sounds in the right mid and lower lung leyva though slowly improving. Cardio: COMMON NORMALS: regular rate, regular rhythm and S1 normal heart sound present RATE: regular rate RHYTHM: regular rhythm HEART SOUNDS: S1 normal heart sound present Extremity: COMMON NORMALS: no clubbing, cyanosis or edema Urinary Catheter Management^: Bond: Cath Placed During This Visit: yes Reason for Continuing Indwelling Catheter: Accurate Measurement of Urinary Output in Critically Ill Patients Urinary Catheter Date of Insertion: 05/20/20 Urinary Catheter Time of Insertion: 07:30 Data : 05/27/20 05:06 05/27/20 05:06 Micro: Microbiology 05/24/20 07:58 Gram Stain - Final Lung Right Lower Lobe Bronchial Washings Culture - Final A&P Assessment and plan (1) Status post lobectomy of lung: Postop day #7 status post lobectomy. Chest tube removed. Will transfer to [place]. Continue pulmonary toilet. Status: Acute Attestations Medical Necessity Statement*: Status post right upper and middle lobectomy for non-small cell carcinoma Time Spent in Patient Care: 16 - 35 minutes Coding Level of Care Code Acute Blade Filer for [facility] Fwd Diagnoses Status post lobectomy of lung Z90.2
[2020-05-27 07:43] LABS: Glucose Point of Care 133 mg/dL (70-110)
[2020-05-27] MEDS: pantoprazole DR 40 mg Tablet PO (08:10)
[2020-05-27] MEDS: metoprolol tartrate 25 mg Tablet PO ×2 (08:10→17:40)
[2020-05-27] MEDS: cetirizine 10 mg Tablet PO (08:10)
[2020-05-27] MEDS: oxyCODONE-APAP 5-325 mg Tablet 1 TAB PO ×2 (08:10→19:02)
[2020-05-27] MEDS: atorvastatin 40 mg Tablet PO (08:10)
[2020-05-27] MEDS: sodium chloride 3.5% neb 4 mL Neb INHALATION (08:45)
[2020-05-27] MEDS: budesonide 0.5 mg/2 mL Neb 0.25 MG INHALATION ×2 (08:45→21:43)
--- NOTE | 2020-05-27 09:25 | PC.CHAP ---
Pastoral Care Encounter/Spiritual Assessment Type of Contact [] Declined rehabilitation physician visit [] Patient/Family/Request visit [] Outpatient visit [] Follow-up visit [] Physician referral [] Code/Alert [] Routine visit [] Staff referral [] Actively dying [] Patient sleeping [] Family support [] [] Out of room [] Palliative care [] [] Receiving care in room [] Pre-surgical visit [] Trauma [] Long length of stay [x] ICU visit [] Other: Relational/Emotional Strength [] Patient feels connected with others/family/visitors/staff [] Distress [] Loneliness/isolation [] Abandonment Spirituality of Patient [] Person of Nadine [] Attends Zoroastrianism of their Nadine [] Believes in Prayer [] Reads Bible or Baptist materials [] There are Spiritual issues to be addressed Storage Battery Inspector Interventions [x] Prayer [] Active listening [] Non-anxious presence [] Spiritual/emotional support [] Crisis/trauma care [] Spiritual counseling [] Bereavement support [] Provided bereavement packet [] Provided Bible/devotional materials [] Provided toy/stuffed animal, coloring book to patient or family member [] Provided Communion [] Anointing/[place] [] Salvation [x] Completed spiritual assessment [] Other: Impact on Illness or Injury [] Angry [] Fearful [] Anxious [] Often cries [] Exhaustion [] Unable to work [] Unable to attend alevism [] Unable to walk/stand [] Unable to read [] Unable to drive [] Unable to eat/drink [] Unable to sleep [] Unable to be with family [] Patient intubated [] Other: Summary Time spent with patient
--- NOTE | 2020-05-27 09:26 | PC.NURSE ---
Assessment Pt sitting on edge of bed this shift. Ate breakfast and complained of pain at 5/10. PRN pain medication given per orders. Incentive spirometer on bedside table and pt stated he has been using it every hour.
[2020-05-27] MEDS: enoxaparin 40 mg/0.4 mL Syringe SUBCUT (09:47)
[2020-05-27 11:20] LABS: Glucose Point of Care 145 mg/dL (70-110)
--- NOTE | 2020-05-27 12:25 | PC.NURSE ---
Therapy Pt walked around the unit twice with therapy. Tolerated well
[2020-05-27] MEDS: morphine 4 mg/mL SDV 1 mL 2 MG IVP (13:08)
--- NOTE | 2020-05-27 13:08 | PC.ADMIT ---
1412 804 Admission Note: The patient,Heri Hernandez,60 y/o, was given written information regarding hospital policies, unit procedures and contact persons. Patient's smoking status: current every day smoker. Vital Signs - 8 hr 05/27/20 06:00 05/27/20 07:00 05/27/20 08:00 Temperature Pulse Rate 88 84 84 Respiratory Rate 21 H 18 16 Blood Pressure 113/61 115/97 138/60 Pulse Oximetry 91 94 94 05/27/20 08:10 05/27/20 08:48 05/27/20 08:51 Temperature Pulse Rate 80 80 Respiratory Rate 18 20 H Blood Pressure Pulse Oximetry 95 93 05/27/20 09:00 05/27/20 10:00 05/27/20 11:00 Temperature Pulse Rate 80 81 79 Respiratory Rate 18 15 16 Blood Pressure 138/60 97/44 97/44 Pulse Oximetry 92 91 91 05/27/20 11:19 Temperature 98.0 F Pulse Rate Respiratory Rate Blood Pressure Pulse Oximetry
--- NOTE | 2020-05-27 20:25 | PC.NURSE ---
Telephone Report given to SMILEY Meeks. Patient transferred to room 250-2 via wheelchair and oxygen via 4L NC. Bedside report given to SMILEY Be at this time.
[2020-05-27 20:57] LABS: Glucose Point of Care 189 mg/dL (70-110)
[2020-05-27 21:17] LABS: Glucose Point of Care 136 mg/dL (70-110)
[2020-05-28] VITALS (9 sets, daily range): BP systolic 111–137; BP diastolic 63–67; PULSE 76–88; RESP 16–20; TEMP 36.6; O2SAT 72–94
[2020-05-28] MEDS: oxyCODONE-APAP 5-325 mg Tablet 1 TAB PO ×2 (01:35→10:05)
[2020-05-28] MEDS: piperacillin-tazobactam 4.5 GM in sodium chloride 0.9% (plus) 50 ML IV ×2 (01:35→10:42)
--- NOTE | 2020-05-28 06:00 | XR_ITS ---
WS: [id number] XR chest 1V portable [id number] REASON FOR EXAM: Postop day #8 status post lobectomy/chest tube removal FINDINGS: Right chest tube has been removed. No pneumothorax or hydropneumothorax. Compared to the previous day there is better aeration and more expansion of the remaining right lung. Consolidative changes in the left lung base are unchanged. XR/XR chest 1V portable [id number] IMPRESSION: Right chest tube removal with improved expansion and aeration of the remaining right lung.
--- NOTE | 2020-05-28 06:05 | PC.NURSE ---
Shift Summary Patient rested well throughout the night. Pain medication given once throughout shift. Ambulated independently to bathroom. Oxygen saturations mid 90s on 3L. MICKIE infused. Patient has been hopeful that physician will be here early as he is ready to leave.
[2020-05-28 06:31] LABS: Glucose Point of Care 136 mg/dL (70-110)
--- NOTE | 2020-05-28 08:19 | PM.PN ---
Subjective Subjective: Interval history: Postop day #8 status post right upper middle lobectomies for adenocarcinoma. Chest tube was removed yesterday. He had a slow progression since his surgery though the past couple days have been demonstrating continued improvement. He has an effective cough. Chest x-ray reveals continue aeration of the remaining right lower lobe with fairly thickened pleura versus retained fluid. Given the volume loss from the upper lobe and middle lobe, this may be the resultant radiographic appearance. Vitals/I&O/Wt Last Vital Signs Temp 97.9 F 05/28/20 07:52 Pulse 83 05/28/20 07:52 Resp 18 05/28/20 07:52 BP 111/67 05/28/20 07:52 Pulse Ox 93 05/28/20 07:52 05/27/20 05/28/20 05/28/20 22:59 06:59 14:59 Intake Total 100 / 340 1000 / 1340 Balance 100 / 340 1000 / 1340 Physical Exam Chest: COMMONS NORMALS: normal inspection of the chest (Thoracotomy incision is intact. Chest tube drain site well approximated) Resp: AUSCULTATION: diminished lung sounds on the right in the lower lung leyva Cardio: COMMON NORMALS: regular rate, regular rhythm and S1 normal heart sound present RATE: regular rate RHYTHM: regular rhythm HEART SOUNDS: S1 normal heart sound present Urinary Catheter Management^: Bond: Cath Placed During This Visit: yes Reason for Continuing Indwelling Catheter: Accurate Measurement of Urinary Output in Critically Ill Patients Urinary Catheter Date of Insertion: 05/20/20 Urinary Catheter Time of Insertion: 07:30 Data : 05/27/20 05:06 05/27/20 05:06 A&P Assessment and plan (1) Status post lobectomy of lung: Postop day #8 status post right upper middle lobectomies. Slow but steady progression, particular over the past 2 days. I will asked my colleague Dr. Scott for an assessment. We will obtain a home O2 evaluation. Home health referral would be beneficial. Betasept shower today. Status: Acute Attestations Medical Necessity Statement*: Postop day #8 status post lobectomy for adenocarcinoma Time Spent in Patient Care: 16 - 35 minutes Coding Level of Care Code Acute Health Records Technology Teacher for g Fwd Diagnoses Status post lobectomy of lung Z90.2
[2020-05-28] MEDS: acetylcysteine 200 mg/mL SDV 4 mL 100 MG INHALATION (08:55)
[2020-05-28] MEDS: budesonide 0.5 mg/2 mL Neb 0.25 MG INHALATION (08:55)
[2020-05-28] MEDS: ipratropium-albuterol 3 mL Neb INHALATION (08:57)
[2020-05-28] MEDS: sodium chloride 3.5% neb 4 mL Neb INHALATION (09:15)
[2020-05-28] MEDS: cetirizine 10 mg Tablet PO (10:04)
[2020-05-28] MEDS: metoprolol tartrate 25 mg Tablet PO (10:04)
[2020-05-28] MEDS: atorvastatin 40 mg Tablet PO (10:04)
[2020-05-28] MEDS: pantoprazole DR 40 mg Tablet PO (10:06)
[2020-05-28] MEDS: chlorhexidine gluconate 4% Btl 118 mL 1 APPLIC TOPICAL (10:42)
[2020-05-28] MEDS: enoxaparin 40 mg/0.4 mL Syringe SUBCUT (10:42)
--- NOTE | 2020-05-28 11:21 | P.PN_ITS ---
Subjective Subjective: Interval history: The patient is doing well. He was sleepy when I went to see him. He was easily arousable. His chest tube has been removed and there has been better lung expansion on the right side. He is receiving Zosyn. His white count has been stable, he has been afebrile with stable hemodynamics The patient qualified for 3 L oxygen with ambulation today. The patient has chronic hypercapnic respiratory failure and he will benefit from noninvasive positive pressure ventilation at night at home. The patient tells me he has a CPAP machine however he does not use that on a regular basis. Medications: Reviewed: Yes Vitals/I&O/Wt Last Vital Signs Temp 97.9 F 05/28/20 10:57 Pulse 76 05/28/20 10:57 Resp 18 05/28/20 10:57 BP 112/67 05/28/20 10:57 Pulse Ox 93 05/28/20 10:57 05/27/20 05/28/20 05/28/20 22:59 06:59 14:59 Intake Total 100 / 340 1050 / 1390 Balance 100 / 340 1050 / 1390 Physical Exam Narrative: EXAM NARRATIVE: General: Patient is awake alert and oriented, in no distress. Neck: No JVD Respiratory: Auscultation: Reduced breath sound on the right hemithorax, no crackles, diffuse wheezing and rhonchi Cardiovascular: Regular rate and rhythm, S1-S2 present, no murmur, no peripheral edema. Abdomen: Soft, nontender, distended from obesity, positive bowel sound Musculoskeletal: No obvious joint deformity Neuro: Mental status is normal, no gross cranial nerve deficit, normal motor and coordination. Urinary Catheter Management^: Bond: Cath Placed During This Visit: yes Reason for Continuing Indwelling Catheter: Accurate Measurement of Urinary Output in Critically Ill Patients Urinary Catheter Date of Insertion: 05/20/20 Urinary Catheter Time of Insertion: 07:30 Data : 05/27/20 05:06 05/27/20 05:06 Attestation for Other Data: I personally reviewed and interpreted the following: Other data: Have reviewed the patient laboratory, microbiologic and radiologic data. His white count has remained stable. Radiologically there is improved aeration compared to before. There is evidence of pleural thickening on the right side likely consistent with postsurgical changes. A&P Assessment and plan (1) Status post lobectomy of lung: The patient underwent right upper and middle lobectomy for lung cancer. Postoperatively the patient developed atelectasis of the right lower lobe. He underwent bronchoscopy and the airway was cleared up. There has been improvement in right lung aeration however he still likely has s ubsegmental atelectasis. Patient is currently on Zosyn. Continue with Augmentin for 7 days as outp atient. Following that the patient will follow up with his regular marker maker Status: Acute (2) Chronic respiratory failure with hypoxia and hypercapnia: Patient has chronic hypoxic and hypercapnic respiratory failure. I do believe that the patient is going to be oxygen dependent at least with exertion in the future. The patient has evidence of significant hypercapnia and will benefit from a BiPAP auto home ventilator. The patient has a CPAP device at home however he does not use it on a regular basis. I have advised him on regularly using it till we switch the CPAP to a BiPAP at home ventilator. Status: Acute (3) WAN (obstructive sleep apnea): The patient has a previous diagnosis of obstructive sleep apnea. He might also have obesity hypoventilation syndrome. Status: Acute (4) COPD (chronic obstructive pulmonary disease): The patient will be following up with his marker maker as outpatient for optimization of his therapy. Status: Acute Qualifiers: COPD type: emphysema Emphysema type: centrilobular Qualified Code(s): J43.2 - Centrilobular emphysema (5) Atelectasis of right lung: The right lung atelectasis is better compared to before. The patient needs to continue with lung clearance techniques. He is scheduled to be discharged home today. Status: Acute Attestations Medical Necessity Statement*: Defer to the primary team Coding Level of Care Code Acute Prepress Supervisor for g Fwd Diagnoses Status post lobectomy of lung Z90.2 Chronic respiratory failure with hypoxia and hypercapnia J96.11; J96.12 WAN (obstructive sleep apnea) G47.33 COPD (chronic obstructive pulmonary disease) J43.2 COPD type: emphysema Emphysema type: centrilobular Atelectasis of right lung J98.11
--- NOTE | 2020-05-28 11:34 | P.DS_ITS ---
Discharge Providers Date of Admission: 05/20/20 13:08 Date of Discharge: May 28, 2020 Attending Provider at Admission: Joselito Pruitt MD Attending Provider at Discharge: Joselito Pruitt MD Diagnoses at Discharge Discharge Diagnosis (1) Status post lobectomy of lung: Status: Acute Permanent problem details: Recovering (2) Chronic respiratory failure with hypoxia and hypercapnia: Status: Acute Permanent problem details: Stable (3) WAN (obstructive sleep apnea): Status: Acute Permanent problem details: Stable (4) COPD (chronic obstructive pulmonary disease): Status: Acute Permanent problem details: Stable Qualifiers: COPD type: emphysema Emphysema type: centrilobular Qualified Code(s): J43.2 - Centrilobular emphysema (5) Atelectasis of right lung: Status: Acute Permanent problem details: Resolving Reason for Visit Reason for Visit: right lobectomy Hospital Course Hospital Course Mr. Hernandez is a 60-year-old morbidly obese gentleman with a long history of continuous tobacco use who was originally diagnosed with a 3.2 cm right upper lobe mass on screening chest x-ray as part of an evaluation for seasonal allergies. Subsequent CT scan confirmed the lesion and PET scan revealed increased activity. He has oxygen dependency as well as COPD and obstructive sleep apnea. Preoperative pulmonary clearance by Dr. Scott is a high risk but acceptable candidate for surgical resection. 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 He was electively admitted on May 20 and underwent right upper and middle lobectomies. Pathology has returned adenocarcinoma. Postoperatively, his course was complicated by atelectasis and mucous plugging requiring bronchoscopy on postop day #4 and aggressive pulmonary toilet. There were repeated episodes of atelectasis of the remaining right lower lobe, though eventually we were able to improve his pulmonary toilet to the point that he could provide effective coughing and mucus clearing. He was followed closely postoperative by Dr. Brown from our pulmonary medicine service. He underwent active diuresis on postop day #6. I removed his chest tube on postop day #7. He has now been on the [place] we continues to perform well with pulmonary toilet. His chest x-ray is stable with continued reexpansion of his right lower lobe but he does have substantial pleural thickening and probably some fluid collection as well. He is remained afebrile. He has been evaluated by Dr. Brown and is felt appropriate for discharge with Augmentin to 8 hours for the next week. He will be scheduled for follow-up with Dr. Scott in 1 week with a chest x-ray. At the time of discharge he is in stable condition. He has refused home health services. Home O2 evaluation been completed. He already has a home O2 concentrator and portable system. I suspect he will require supplemental oxygen for quite some time. Physical Exam Chest: COMMONS NORMALS: normal inspection of the chest (Orchiotomy incision is clean, dry, and intact. Chest tube site is well el) Resp: AUSCULTATION: diminished lung sounds on the right in the lower lung leyva Cardio: COMMON NORMALS: regular rate, regular rhythm, S1 normal heart sound present, No gallops present (Cardio) and No rub (Cardio) RATE: regular rate RHYTHM: regular rhythm HEART SOUNDS: S1 normal heart sound present Extremity: COMMON NORMALS: no clubbing, cyanosis or edema Urinary Catheter Management^: Bond: Cath Placed During This Visit: yes Reason for Continuing Indwelling Catheter: Accurate Measurement of Urinary Output in Critically Ill Patients Urinary Catheter Date of Insertion: 05/20/20 Urinary Catheter Time of Insertion: 07:30 Discharge Data Data Completed and Pending: Completed Studies During Hospitalization Category Date Time Status CXRP [XR chest 1V portable [id number]] S tat Exams 05/24/20 08:09 Completed XR chest 1V jena ble [id number] Routine Exams 05/20/20 05:40 Completed XR chest 1V jena ble [id number] Routine Exams 05/21/20 06:00 Completed XR chest 1V jena ble [id number] Routine Exams 05/22/20 06:00 Completed XR chest 1V jena ble [id number] Routine Exams 05/22/20 15:00 Completed XR chest 1V jena ble [id number] Routine Exams 05/24/20 06:16 Completed XR chest 1V jena ble [id number] Routine Exams 05/25/20 06:00 Completed XR chest 1V jena ble [id number] Routine Exams 05/26/20 06:00 Completed XR chest 1V jena ble [id number] Routine Exams 05/27/20 06:00 Completed XR chest 1V jena ble [id number] Routine Exams 05/28/20 06:00 Completed XR chest 1V jena ble [id number] Stat Exams 05/20/20 14:07 Completed XR chest 1V jena ble [id number] Stat Exams 05/23/20 04:38 Completed Pathology: Surgic al [PTH] Routine Pth 05/20/20 13:12 Completed Labs from last 24 hours 05/28/20 05/27/20 05/27/20 06:19 21:15 17:31 POC Glucose 136 136 189 Crossmatch 05/18/20 13:28 POC Glucose Crossmatch See Detail Vitals: Last Vital Signs Temp 97.9 F 05/28/20 10:57 Pulse 76 05/28/20 10:57 Resp 18 05/28/20 10:57 BP 112/67 05/28/20 10:57 Pulse Ox 93 05/28/20 10:57 Discharge Plan Discharge Patient Disposition: Home Condition: Stable Prescriptions: New oxycodone-acetaminophen 5-325 mg Tablet 1 tab PO Q6H PRN (Reason: Moderate Pain) Qty: 24 RF: 0 amoxicillin-pot clavulanate [Augmentin] 500-125 mg tablet 1 tab PO Q8H Qty: 21 RF: 0 Continued ketotifen fumarate [Zaditor] 0.025 % (0.035 %) drops 1 drop ophthalmic (eye) Q12H Qty: 5 RF: 6 albuterol sulfate [Ventolin HFA] 90 mcg/actuation HFA aerosol inhaler 1 - 2 inh INHALATION QID PRN (Reason: Shortness Of Breath) RF: 0 rosuvastatin 10 mg tablet 10 mg PO DAILY Qty: 30 RF: 3 metoprolol tartrate 25 mg tablet 25 mg PO BID Qty: 60 RF: 3 metformin 500 mg tablet 500 mg PO BID Qty: 60 RF: 0 nicotine 14 mg/24 hr Patch 24 Hour 1 patch TRANSDERMAL Q24H RF: 0 Zyrtec 10 mg Tablet 10 mg PO DAILY PRN (Reason: Allergy Symptoms) RF: 0 Aspir-81 81 mg Tablet,Delayed Release (Dr/Ec) 81 mg PO DAILY@20 RF: 0 Centrum Silver Tablet 1 tab PO DAILY RF: 0 Discharge Orders: Discharge Order (Routine); Ordered 05/28/20 Ordered By: Joselito Pruitt Discharge Diet: Diabetic Discharge Activity: Limit activity as instructed Activity Restrictions/Additional Instructions: Use incentive spirometer frequently Walk frequently May shower daily with dressings off. No swimming or tub baths x3 weeks Report fever, productive cough, increasing shortness of breath, increasing pain of incision or redness of incision or drainage. Do not lift more than 5 pounds for next 6 weeks In bed only for sleeping, otherwise up in chair or walking Discharge Attestations Time Spent in Discharge Care*: less than 30 min Specific Discharge Activities: educating patient, discussing with pcp/other providers, discussing with manager rn case/social workers/dc planners, documenting/other paperwork and evaluating patient/reviewing data Time Spent in Smoking Cessation: 3 to 10 minutes Status at Discharge: Cognitive status at discharge: cognitively intact , Functional status at discharge: independent ambulation Overall status at discharge: patient is progressing back to baseline Quality Metrics Clinical Quality Measures During this hospital stay, did patient experience: None Coding Level of Care Code 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
[2020-05-28 11:41] LABS: Glucose Point of Care 142 mg/dL (70-110)
--- NOTE | 2020-05-28 13:12 | PC.NURSE ---
PT REFUSED SHOWER STATED HIS CAN USE BETASEPT AT HOME TO SHOWER, PT WAS GIVEN INSTRUCTIONS ON HOW TO USE BETASEPT, PT WAS ALSO GIVEN SUPPLIES FOR DRESSING CHANGE. PT HAD NO QUESTIONS OR CONCERNS AT THIS TIME, HE WAS GIVEN INSTRUCTIONS ON HOW TO CONTACT NURSE IF HE HAD ANY QUESTIONS ARISE.
== END 2020-05-28 12:20 | disposition home or self-care (01) | DRG 164 ==
LOC: ICU 13:08 → MEDSURG 05-27 20:25
PROVIDERS: Internal Medicine Critical Care Medicine; Admitting Provider Thoracic Surgery (Cardiothoracic Vascular Surgery); Visit Provider Thoracic Surgery (Cardiothoracic Vascular Surgery)
PROC: (CPT 32480; principal; 2020-05-20 07:00)
PROC: 0BJ08ZZ Inspection of Tracheobronchial Tree, Via Natural or Artificial Opening Endoscopic (ICD-10-PCS; CPT 31622; principal; 2020-05-24 07:00)
DX: C34.11 Malignant neoplasm of upper lobe, right bronchus or lung (principal); J96.12 Chronic respiratory failure with hypercapnia; J96.11 Chronic respiratory failure with hypoxia; J98.11 Atelectasis; Z68.41 Body mass index [BMI] 40.0-44.9, adult; G47.33 Obstructive sleep apnea (adult) (pediatric); Z99.81 Dependence on supplemental oxygen; Z79.82 Long term (current) use of aspirin; Z79.84 Long term (current) use of oral hypoglycemic drugs; E66.01 Morbid (severe) obesity due to excess calories; E11.9 Type 2 diabetes mellitus without complications; J43.2 Centrilobular emphysema
CPT/HCPCS: 12345; 31622; 31645; 36415; 36416; 36600; 51702; 71045; 80048; 80051; 80053; 81003; 82330; 82805; 82962; 83605; 83735; 84100; 85025; 85610; 86850; 86900; 86920; 87070; 87205; 88309; 94002; 94640; 94660; 94668; 94799; 96372; 96374; 96375; 97110; 97116; 97163; 97530; J0131; J0690; J1170; J1644; J1650; J1815; J1885; J1940; J2250; J2270; J2370; J2405; J2543; J2704; J2795; J3010; J3480; J3490; J7030; J7608; J7626

== ENCOUNTER 2020-06-05 12:09 | Outpatient (CLI) | payer SELFPAY ==
--- NOTE | 2020-06-05 12:22 | XRR_ITS ---
PROCEDURE INFORMATION: Exam: XR Chest, 2 Views Exam date and time: 06/05/2020 12:37 PM Age: 60 years old Clinical indication: Condition or disease; Prior surgery; Surgery date: <1 month; Surgery type: RT lung lobectomy 05/20/20; Additional info: Right lower lung TECHNIQUE: Imaging protocol: XR of the chest Views: 2 views. COMPARISON: CR XR chest 1V portable [id number] 05/28/2020 6:34 AM FINDINGS: Lungs: Stable evidence of partial resection of the right lung. There is volume loss in the right hemithorax. Metallic arnie are seen overlying the right hemithorax. The left lung is expanded and clear No consolidation. Pleural space: Unremarkable. No pleural effusion. No pneumothorax. Heart/Mediastinum: Unremarkable. No cardiomegaly. Bones/joints: Unremarkable. XR/XR chest 2V* [id number] IMPRESSION: 1. Stable surgical change right hemithorax. 2. Stable metallic arnie right hemithorax 3. Otherwise negative examination
== END 2020-06-05 12:10 | disposition home or self-care (01) ==
PROVIDERS: Visit Provider Internal Medicine Pulmonary Disease
DX: J98.11 Atelectasis (principal)
CPT/HCPCS: 71046

== ENCOUNTER 2020-07-25 14:50 | Outpatient (CLI) | payer SELFPAY ==
--- NOTE | 2020-07-25 16:30 | ONC CON_ITS ---
Dr. Morillo New Patient Note Patient: Heri Hernandez Unit #: [id number]: 1960 Dicatated By: Kike Morillo M.D.Date of Visit: Jul 25, 2020 Onc MED New Patient/Consult Referring Physician: Dr. ELLIOTT PRUITT M.D. Chief Complaint: Lung cancer. 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 He has oxygen dependent COPD. He had moved to this area about a year ago. In December 2019 had seen his primary care provider with persistent earache. His chest x-ray shows a 3 cm ovoid density overlying the anterior third rib. He was recommended to have further evaluation with CT. His noncontrast chest CT on 02/09/2020 showed a solid, lobulated mass in the upper lobe of the right lung measuring 3.2 cm. The appearance was suspicious for primary neoplasm. There was no associated adenopathy or pleural effusion. He had consultation with Dr. Pruitt on 03/07/2020. His staging PET/CT on 03/16/2020 showed FDG avid right upper lobe mass measuring 3.5 cm, SUV 6.3, indicating high probability of malignancy. There were no other areas of abnormal uptake. His subsequent pulmonary function tests showed an obstructive defect with severely reduced FEV1 at 1.80 L, 47% of predicted. His sestamibi stress test on 04/15/2020 showed a small size reversible perfusion abnormality of the mid to apical inferior, apical septal, apical lateral and apical ugarte. This was suggestive of a small area of ischemia in the right coronary artery territory. He was treated medically with metoprolol. On 05/20/2020 he underwent thoracotomy with right upper and middle lobectomies. Pathology showed moderately differentiated adenocarcinoma measuring 4.2 x 4.1 x 3.7 cm. All margins were uninvolved. There is no evidence for visceral pleural or lymphovascular invasion. There were no lymph nodes included in the surgical specimen. His postoperative course was complicated by mucous plugging and by fluid retention, but he did gradually recover. He is seen now in regard to further management of the lung cancer. He is feeling pretty good now. He says he does have energy, but his activity is limited. He is able to do light work. ECOG score is 1. He has had good appetite. He does not have fever or night sweats. He still has earaches. He has not had sore throat or difficulty swallowing. His breathing does get worse with cold weather, but generally is okay on oxygen. He does not have much cough. He is having some numbness in the area of his surgery, but he has not been having chest pain. He has no GI or complaints. He has no significant joint or bone pain. He does not complain of headache or dizziness. He has no other focal neurologic symptoms. Past Medical History: His medical history includes chronic obstructive pulmonary disease, hyperlipidemia, obstructive sleep apnea, and type II diabetes. Past Surgical History: He underwent thoracotomy with right upper and middle lobectomies on 05/20/2020 and he underwent bronchoscopy on 05/24/2020. His other surgical/procedural history includes open reduction for right foot fracture and lumbar laminectomy/fusion in 1995. Medications: Aspirin 81 1 (81 mg) Tablet, chewable Oral daily, Centrum 1 Tablet Oral daily, Cetirizine HCl 1 (10 mg) Tablet Oral daily, Crestor 1 (10 mg) Tablet Oral daily, Magnesium-Zinc 1 (133.33-5 mg) Tablet Oral daily, Metoprolol Tartrate 1 (25 mg) Tablet Oral b.i.d. Allergies: Carisoprodol Social History: Mr. 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 Mr. Hernandez quit smoking less than one year ago but had smoked 1.0 pack/day for 41 years. He drinks occasionally. 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 He has history of smoking 1-1/2 packs of cigarettes daily for 48 years. He quit smoking in May 2020. He has occasional alcohol use. Family History: Father still living at age 89. Mother had diabetes and with strokes at age 65. A 62-year-old sister was recently treated for breast cancer. One brother is in good health. Review Of Symptoms: Constitutional - He says he has energy, but he does have limited activity. He is able to do light work. Appetite is good and weight is stable. No fever, night sweats, or hot flashes. ECOG score is 1, Eyes - No change in vision, ENMT - No hearing loss or tinnitus, but he does complain of having earache. No sinus congestion/drainage. No mouth sores. No sore throat or difficulty swallowing, Hematologic/Lymphatic - No abnormal bruising or bleeding, Respiratory - His breathing does get worse with cold weather but it is otherwise okay with oxygen. He does not have much cough. He has had no hemoptysis. He is not having pleuritic pain. He does have some numbness in the area of his surgery, Cardiovascular - No angina pain. No palpitations, Gastrointestinal - No nausea or vomiting. No heartburn or acid reflux. No diarrhea or constipation. No blood in the stool or black stools, Genitourinary (M) - No dysuria or hematuria. No urinary frequency. No urgency or incontinence, Musculoskeletal - No joint or bone pain, Integumentary - No skin rash or other skin changes, Neurologic - No headache or dizziness. No other focal neurologic symptoms, Psychiatric - No anxiety or depression. No insomnia. Vital Signs: Performed on Jul 25, 2020 15:14: 0, 45.49 (HIGH), 2.54 sq.m, 70 in, 96 %, 69 /min, 20 /min, 135/75 mm(hg), 97.0 F (LOW), and 317 lbs (HIGH). Physical Examination: Constitutional - He looks pretty good generally, Eyes - Sclerae nonicteric. Conjunctivae clear, ENMT - No lesions noted in the oral cavity, Neck - No mass or thyromegaly, Hematologic/Lymphatic - No cervical, clavicular, or axillary adenopathy, Respiratory - Lungs show diminished air movement bilaterally. There are a few rales on the right, Cardiovascular - Heart rhythm is regular. There is no murmur, gallop, or rub noted, Abdomen - Moderately distended. Liver and spleen are not enlarged. There is no abdominal mass or ascites noted and there is no inguinal adenopathy, Back/Spine - No spine or CVA tenderness noted, Extremities - Mild lower extremity edema. Dorsalis pedis pulses are palpable bilaterally, Integumentary - No rashes. No suspicious skin lesions noted, Neurologic - No focal neurologic deficits noted. Problem List: 1. Moderately differentiated adenocarcinoma involving the upper lobe of the right lung, by clinical evaluation stage IB (T2a, N0, M0). He underwent thoracotomy with right upper and middle lobectomies on 05/20/2020. 2. COPD, oxygen dependent. 3. Hyperlipidemia. 4. Suspected coronary artery disease based on abnormal sestamibi stress test. 5. Type 2 diabetes, recently diagnosed, currently not requiring medication. 6. Obstructive sleep apnea. Problems Addressed with this Encounter and Plan: Moderately differentiated adenocarcinoma involving the upper lobe of the right lung, by clinical evaluation stage IB (T2a, N0, M0). He underwent thoracotomy with right upper and middle lobectomies on 05/20/2020. The procedure did not include lymph node sampling, but there was no evidence of lymph node involvement by CT or PET/CT. The pathology findings were reviewed with the patient, and we discussed the clinical implications. His disease has been completely resected, but as it is invasive cancer there is potential for the disease to recur and/or spread. With clinical staging there is some uncertainty as to his lymph node status, but based on his T size alone he would potentially qualify for adjuvant chemotherapy, per NCCN guidelines. Given his overall medical condition, though, I am not inclined to recommend chemotherapy, and he would not be motivated to take chemotherapy to begin with. However, if he were to have an EGFR mutation positive cancer, he potentially would qualify for adjuvant therapy with osimertinib. As such, I will request an EGFR mutation analysis on the tumor, and if it is positive he can be offered adjuvant therapy. If negative he will be followed on observation/expectant management. Signed By: Kike Morillo M.D. <<Signature on File>>
[2020-08-13 17:41] LABS: EGFR Result NOT DETECTED (NOT DETECTED); EGFR Specimen Source LUNG
== END 2020-07-25 14:51 | disposition home or self-care (01) ==
LOC: ONCMED 14:52
PROVIDERS: Visit Provider Internal Medicine Medical Oncology
DX: C34.11 Malignant neoplasm of upper lobe, right bronchus or lung (principal); J44.9 Chronic obstructive pulmonary disease, unspecified; Z99.81 Dependence on supplemental oxygen; E78.5 Hyperlipidemia, unspecified; I25.10 Atherosclerotic heart disease of native coronary artery without angina pectoris; E11.9 Type 2 diabetes mellitus without complications; G47.33 Obstructive sleep apnea (adult) (pediatric); Z79.899 Other long term (current) drug therapy
CPT/HCPCS: 99205

== ENCOUNTER 2021-02-25 10:43 | Outpatient (CLI) | payer SELFPAY ==
--- NOTE | 2021-02-25 10:48 | CT_ITS ---
WS: [id number] CT CHEST WITH INTRAVENOUS CONTRAST HISTORY: LUNG CANCER TECHNIQUE: Contiguous 5 mm axial imaging performed on the thorax. Coronal and sagittal reformats are submitted. All CT scans at [facility] use at least one of these dose optimization techniques: automated exposure control; mA and/or kV adjustment per patient size (includes targeted exams where dose is matched to clinical indication); or iterative reconstruction. CONTRAST: Omnipaque 300; 95 mL IV. DLP: 1035.16 mGy.cm COMPARISON: 02/09/2020 and 06/05/2020 Lungs and central airway: Numerous surgical sutures are noted at the RIGHT hilum. RIGHT upper lobecto my. RIGHT middle lobe may also been removed. There is volume loss in the RIGHT thorax with pleural th ickening. There are new, numerous bilateral pulmonary nodules. Largest nodules measure up to 1.6 cm i n diameter. Nodules are predominantly in the lower lung leyva bilaterally in greatest on the LEFT. Pleura: Mild pleural thickening throughout the RIGHT thorax. No effusions. Heart and pericardium: Normal size heart with no pericardial effusion. Mediastinum and chin: Mediastinal and hilar lymph nodes are very similar to the prior examination. Th e largest lymph node is 11 mm and has slightly increased in size since 02/09/2020. This largest lymph node is at the AP window. Vessels: Mild atherosclerosis aorta. Chest wall and lower neck: No soft tissue masses. Upper abdomen: Hepatic steatosis. No adrenal mass. Splenic granulomata. Osseous structures: No osteoblastic or osteolytic bone disease. CT/CT chest w con* [id number] IMPRESSION: 1. Numerous bilateral, new pulmonary nodules consistent with metastatic diseas e. New since 02/09/2020. The largest nodules measure 1.6 cm in diameter. 2. Very minimal increase in size of an 11 mm AP window lymph node. 3. Prior RIGHT lobectomy. Postsurgical changes at the RIGHT hilum are stable. No recurrent mass at the RIGHT hilum. 4. No metastatic lesions within the liver or adrenal glands.
[2021-02-25] MEDS: iohexol 300 mg/mL 100 mL Btl IV (11:24)
== END 2021-02-25 10:44 | disposition home or self-care (01) ==
LOC: CT 10:46
PROVIDERS: Visit Provider Internal Medicine Medical Oncology
DX: C34.11 Malignant neoplasm of upper lobe, right bronchus or lung (principal); R91.8 Other nonspecific abnormal finding of lung field; Z90.2 Acquired absence of lung [part of]
CPT/HCPCS: 71260

== ENCOUNTER 2021-05-20 13:43 | Outpatient (CLI) | payer SELFPAY | END 2021-05-20 13:44 | disposition home or self-care (01) | LOC: ONCMED 13:45 | PROVIDERS: Visit Provider Internal Medicine Medical Oncology | DX: C34.11 Malignant neoplasm of upper lobe, right bronchus or lung (principal) | CPT/HCPCS: 36415 ==

== ENCOUNTER 2021-06-09 08:21 | Outpatient (CLI) | payer SELFPAY ==
--- NOTE | 2021-06-09 | CT_ITS ---
WS: [id number] CT scan of the head, 06/09/2021 Clinical Data: MALIGNANT NEOPLASM RUL Comparison: None. DLP: 3548.[address] scans at [facility] use at least one of these dose optimization techniques: automated e xposure control; mA and/or kV adjustment per patient size (includes targeted exams where dose is matc hed to clinical indication); or iterative reconstruction. Findings: The ventricular system is normal without shift. No recent infarct or hemorrhage is seen. There are no abnormal intracerebral masses. The cerebellum and brainstem are not remarkable. No abnormal contrast enhancement of any structure occurs. No metastatic lesions are seen. There are no intracerebral aneu rysms. The vascular system of the brain is normal. Bony windows of the skull and skull base show no fractures or erosions. The mastoid air cells, internal audit director al auditory canals, sella turcica, intraorbital contents, and paranasal sinuses show only minimal muc operiosteal thickening of the left maxillary sinus.. CT/CT head wo/w con [id number]: [address] scan of the head with and without IV contrast. 2. Negative for metastatic lesions.
[2021-06-09] MEDS: iohexol 350 mg/mL 100 mL Btl IV (10:22)
== END 2021-06-09 08:22 | disposition home or self-care (01) ==
PROVIDERS: Visit Provider Internal Medicine Medical Oncology
DX: C34.11 Malignant neoplasm of upper lobe, right bronchus or lung (principal)
CPT/HCPCS: 70470; Q9967